=== PATIENT | male | born 1930 | race Caucasian/White ===

== ENCOUNTER 2017-04-08 07:09 | Inpatient (IN) ==
[2017-04-08] MEDS ORDERED: predniSONE 20 MG TABLET PO ONE (07:11)
[2017-04-08] MEDS ORDERED: Furosemide 40 MG/4 ML VIAL IVP ONE (07:11)
[2017-04-08] MEDS ORDERED: Ipratropium/Albuterol Neb 3 ML IH ONE (07:13)
[2017-04-08 07:40] LABS: Basophils % 0.4 %; Eosinophils % 0.3 %; Hematocrit 30.7 % (37.5-50.1); Hemoglobin 9.9 g/dL (12.9-16.9); Immature Granulocytes % 0.4 % (0-4); Immature Platelets 3.6 % (1.1-6.1); Lymphocytes # 0.8 K/mcL (0.6-4.6); Lymphocytes % 11.4 %; Mean Corpuscular HGB Conc 32.2 g/dL (31.6-35.5); Mean Corpuscular Hemoglobin 28.9 pg (28.0-33.3); Mean Corpuscular Volume 89.5 fL (83.0-100.0); Mean Platelet Volume 11.3 fL (9.4-12.4); Monocytes # 0.6 K/mcL (0.0-1.3); Monocytes % 8.7 %; Neutrophils # 5.4 K/mcL (1.6-8.9); Red Blood Count 3.43 M/mcL (4.19-5.50); Red Cell Distribution Width 14.5 % (11.5-14.5); Segmented Neutrophils % 78.8 %
[2017-04-08 07:50] LABS: Calcium 9.4 mg/dL (8.6-10.8); Potassium 4.6 mEq/L (3.5-4.5)
[2017-04-08 07:55] LABS: Platelet Count 81 K/mcL (140-400)
[2017-04-08 08:05] LABS: Bilirubin,Urine Negative (Negative); Blood,Urine Negative (Negative); Clarity,Urine Clear (Clear); Color,Urine Yellow (Yellow); Glucose,Urine (UA) 250 mg/dL (Normal); Ketones,Urine Negative (Negative); Leukocyte Esterase,Urine Negative (Negative); Nitrite,Urine Negative (Negative); Protein,Urine 100 mg/dL (Neg-Trace); Specific Gravity,Urine 1.019 (1.010-1.025); Urobilinogen,Urine Normal (Normal)
[2017-04-08 08:08] LABS: Bacteria,Urine None Seen per hpf (None-Few); Hyaline Casts,Urine None Seen per lpf (None-Few); RBC,Urine 0-3 per hpf (0-3); Squamous Epithelial Cell,Urine Many per lpf (None-Few); WBC,Urine 0-3 per hpf (0-3)
[2017-04-08] MEDS ORDERED: Levofloxacin 750 MG/150 ML 750 MG/150 ML BAG IVPB ONE (08:23)
--- NOTE | 2017-04-08 09:06 | Emergency Department Note ---
Disposition Clinical Impression: Hypoxia Congestive heart failure Qualifiers: Congestive heart failure type: unspecified congestive heart failure type Congestive heart failure chronicity: acute on chronic Qualified Code(s): I50.9 - Heart failure, unspecified Fluid overload Qualifiers: Hypervolemia type: unspecified Qualified Code(s): E87.70 - Fluid overload, unspecified Disposition: Admitted As Inpatient Condition: Good Forms: ED Satisfaction Letter Time of Disposition: 09:27 SOB HPI - General Chief Complaint: ED Shortness of Breath/Dyspnea Stated Complaint: YOHANNES Time Seen by Provider: 04/08/17 07:11 Source: patient Mode of arrival: ambulatory Limitations: no limitations Nursing Notes Reviewed: Yes Vital Signs Reviewed: Yes - History of Present Illness Patient presents from the [facility] for shortness of breath. He says that he said this happened in the past. He has a history of congestive heart failure and cardiac issues but denies any chest pain this time. Onset of the symptoms slowly last several days. Denies chest pain fevers chills nausea vomiting diarrhea. Denies headache or vision changes. His main complaint is shortness of breath and exertional dyspnea. No recent trauma or injuries no other medical issues at this time Pt Subjective Complaint: cough Onset (ago): day(s) Severity: moderate Consistency/Duration: constant Improves with: oxygen, rest, bronchodilators, upright position Worsens with: lying flat, exertion Known history of: congestive heart failure Associated symptoms: Reports: cough, orthopnea. Denies: sputum production, lower extremity pain Treatment prior to arrival: oxygen Cough present: No Sputum production: No - Related Data Home oxygen amount: 4 liters Allergies Allergy/AdvReac Type Severity Reaction Status Date / Time No Known Allergies Allergy Verified 04/08/17 07:42 All systems ED: reviewed and negative except as stated. Review of Systems: As Per HPI Constitutional: Denies: fever, chills, weakness Cardiovascular: Reports: dyspnea on exertion, orthopnea, edema. Denies: chest pain, palpitations Respiratory: Denies: cough, dyspnea, wheezes Gastrointestinal: Denies: abdominal pain, nausea, vomiting, diarrhea Genitourinary: Denies: dysuria, frequency Musculoskeletal: Denies: back pain, neck pain Neurological: Denies: headache Past Medical History - Past Medical History Attestation: Yes The following information was validated with the patient. Source: patient Medical history: Reports: CHF, diabetes, myocardial infarction, renal disease Psychiatric history: Reports: no psych history - Social History Smoking Status: Never smoker Smokeless Tobacco Status: No Alcohol use: Reports: none Drug use: Reports: none Physical Exam - General Limitations: no limitations General appearance: alert, in no apparent distress - Head Head exam: atraumatic, normocephalic, normal inspection - Eye Eye exam: Present: normal appearance, PERRL, EOMI - Neck Neck exam: Present: normal inspection, full ROM, trachea midline - Chest Chest inspection: Present: normal inspection, symmetric chest wall rise - Respiratory Respiratory exam: Present: normal lung sounds bilaterally - Cardiovascular Cardiovascular exam: Present: regular rate, normal rhythm, normal heart sounds - Abdominal Exam Abdominal exam: Present: soft, Non-Tender, normal bowel sounds. Absent: tenderness, distention, guarding, rebound, rigidity, diminished bowel sounds - Extremities Exam Extremities exam: Present: normal inspection, full ROM, normal capillary refill , pedal edema. Absent: tenderness - Back Exam Back exam: Present: normal inspection, full ROM. Absent: tenderness, CVA tenderness (R), CVA tenderness (L) - Neurological Exam Neurological exam: Present: alert, oriented X3, CN II-XII intact, normal gait - Skin Skin exam: Present: warm, dry, intact, normal color Course Course Narrative: patient seen and examined the time oeen her shortness of breath. The clinic w emergency room for e patient denies any chest pain. Denies any fevers or chills nausea vomiting or diarrhea. Denies any recent medication changes or trauma this time. Patient presentation is alert and oriented and speaking in full sentences without does have visible dyspnea and increased work of breathing. On 4 L of oxygen and does not use oxygen at home. Patient's lungs are coarse and wet on presentation. Does have pitting edema in the lower extremities. He is sitting upright and leaning forward. He has no stridor no trismus. His mucous membranes are moist. Cardiac evaluation sows no murmurs and regular rhythm. EKG chest x-ray labs including BNP and troponin will be ordered at this time. Single dose of IV Lasix to be ordered. Patient will most likely need admission for what appears to be shortness of breath, fluid overload, increased work of breathing at this time. Patient I discussed this at length in presentation is comfortable this plan. Patient will be given aspirin precaution early including evaluation for possible cardiac source. Patient is otherwise stable resting comfortably in the bed. - Reevaluation(s) Reevaluation #1: Patient found a significantly elevated BNP, stable renal insufficiency, low hemoglobin of 9.91 g drop compared to one lab drawn from almost 8 months ago. He denies any dark-colored stools and greater than 4 months. He deferred rectal examination at this time. Vital signs otherwise stable while here. IV Lasix given with a creatinine 2.29 which appears to be around his baseline. Patient will need admission for definitive management. He still requiring 4 L of oxygen here in the emergency room. Otherwise his heart rate and his respirations are stabilized after breathing treatments and steroids. Patient is comfortable in the bed at this point family and the patient both agree with the course of care plan. Hospital space at this time for admission Time: 09:18 Reevaluation #2: Dr. stallings and I reviewed the patient's presentation symptoms of medical history. Happy to accept the patient has a hospital for definitive management of what appears to be fluid overload CHF and hypoxia. Patient is much better after his treatments as well as evaluation in the emergency room. No other clinical concerns noted during this evaluation. Time: 09:27 Vital Signs Temperature 99.5 F 04/08/17 07:11 Pulse Rate 88 04/08/17 07:11 Respiratory Rate 18 04/08/17 07:11 Blood Pressure 168/75 04/08/17 07:11 O2 Sat by Pulse Oximetry 91 04/08/17 07:11 Temperature 99.5 F 04/08/17 07:11 Pulse Rate 88 04/08/17 07:11 Respiratory Rate 18 04/08/17 07:11 Blood Pressure 168/75 04/08/17 07:11 O2 Sat by Pulse Oximetry 94 04/08/17 07:11 Oxygen Delivery Oxygen Delivery Nasal Cannula Shortness of Breath/Dyspnea - MDM Narrative Medical decision making narrative: Shortness of breath, congestive heart failure, elevated troponin, increased work of breathing - Medical Records Medical records reviewed: Yes I reviewed the patient's medical records. - Lab Data Lab results reviewed: Yes I reviewed the patient's lab results. Result diagrams: 04/08/17 07:31 04/08/17 07:31 Lab Results 04/08/17 04/08/17 04/08/17 Range/Units 07:31 07:31 07:31 WBC 6.9 (4.3-11.1) K/mcL RBC 3.43 L (4.19-5.50) M/mcL Hgb 9.9 L (12.9-16.9) g/dL Hct 30.7 L (37.5-50.1) % MCV 89.5 (83.0-100.0) fL MCH 28.9 (28.0-33.3) pg MCHC 32.2 (31.6-35.5) g/dL RDW 14.5 (11.5-14.5) % Plt Count 81 L (140-400) K/mcL MPV 11.3 (9.4-12.4) fL Immature Gran % 0.4 (0-4) % Seg Neutrophils % 78.8 % Lymphocytes % 11.4 % Monocytes % 8.7 % Eosinophils % 0.3 % Basophils % 0.4 % Neutrophils # 5.4 (1.6-8.9) K/mcL Lymphocytes # 0.8 (0.6-4.6) K/mcL Monocytes # 0.6 (0.0-1.3) K/mcL Eosinophils # 0.0 (0.0-0.6) K/mcL Basophils # 0.0 (0.0-0.2) K/mcL Immature Plt Fraction 3.6 (1.1-6.1) % Sodium 138 (136-145) mEq/L Potassium 4.6 H (3.5-4.5) mEq/L Chloride 109 (98-109) mEq/L Carbon Dioxide 20 (19-29) mEq/L BUN 40 H (8-26) mg/dL Creatinine 2.29 H (0.72-1.25) mg/dL Est GFR ( Amer) 33 L (> 60) Est GFR (Non-Af Amer) 27 L (> 60) BUN/Creatinine Ratio 17 (6-26) Glucose 273 H (70-99) mg/dL Calculated Osmolality 305 H (280-300) Lactic Acid 1.6 (0.5-2.2) mmol/L Calcium 9.4 (8.6-10.8) mg/dL Troponin I (0-0.03) ng/mL B-Natriuretic Peptide (0-100) pg/mL Urine Color (Yellow) Urine Clarity (Clear) Urine pH (5.0-8.0) pH Units Ur Specific [place] (1.010-1.025) Urine Protein (Neg-Trace) mg/dL Urine Glucose (UA) (Normal) mg/dL Urine Ketones (Negative) mg/dL Urine Blood (Negative) Urine Nitrite (Negative) Urine Bilirubin (Negative) Urine Urobilinogen (Normal) mg/dL Ur Leukocyte Esterase (Negative) Urine Microscopic RBC (0-3) per hpf Urine Microscopic WBC (0-3) per hpf Ur Squamous Epith Cells (None-Few) per lpf Urine Bacteria (None-Few) per hpf Hyaline Casts (None-Few) per lpf Ur Culture Indicated? (NO) 04/08/17 04/08/17 04/08/17 Range/Units 07:31 07:31 07:58 WBC (4.3-11.1) K/mcL RBC (4.19-5.50) M/mcL Hgb (12.9-16.9) g/dL Hct (37.5-50.1) % MCV (83.0-100.0) fL MCH (28.0-33.3) pg MCHC (31.6-35.5) g/dL RDW (11.5-14.5) % Plt Count (140-400) K/mcL MPV (9.4-12.4) fL Immature Gran % (0-4) % Seg Neutrophils % % Lymphocytes % % Monocytes % % Eosinophils % % Basophils % % Neutrophils # (1.6-8.9) K/mcL Lymphocytes # (0.6-4.6) K/mcL Monocytes # (0.0-1.3) K/mcL Eosinophils # (0.0-0.6) K/mcL Basophils # (0.0-0.2) K/mcL Immature Plt Fraction (1.1-6.1) % Sodium (136-145) mEq/L Potassium (3.5-4.5) mEq/L Chloride (98-109) mEq/L Carbon Dioxide (19-29) mEq/L BUN (8-26) mg/dL Creatinine (0.72-1.25) mg/dL Est GFR ( Amer) (> 60) Est GFR (Non-Af Amer) (> 60) BUN/Creatinine Ratio (6-26) Glucose (70-99) mg/dL Calculated Osmolality (280-300) Lactic Acid (0.5-2.2) mmol/L Calcium (8.6-10.8) mg/dL Troponin I 0.06 H* (0-0.03) ng/mL B-Natriuretic Peptide 1194 H (0-100) pg/mL Urine Color Yellow (Yellow) Urine Clarity Clear (Clear) Urine pH 6.0 (5.0-8.0) pH Units Ur Specific [place] 1.019 (1.010-1.025) Urine Protein 100 H (Neg-Trace) mg/dL Urine Glucose (UA) 250 H (Normal) mg/dL Urine Ketones Negative (Negative) mg/dL Urine Blood Negative (Negative) Urine Nitrite Negative (Negative) Urine Bilirubin Negative (Negative) Urine Urobilinogen Normal (Normal) mg/dL Ur Leukocyte Esterase Negative (Negative) Urine Microscopic RBC 0-3 (0-3) per hpf Urine Microscopic WBC 0-3 (0-3) per hpf Ur Squamous Epith Cells Many H (None-Few) per lpf Urine Bacteria None Seen (None-Few) per hpf Hyaline Casts None Seen (None-Few) per lpf Ur Culture Indicated? NO (NO) - Radiology Data Radiology results reviewed: Yes I reviewed the patient's radiology results. Chest x-ray is concerning for left-sided pleural effusion or pneumonia - EKG Data EKG attestation: Yes I reviewed and interpreted this EKG. EKG shows normal: Reports: sinus rhythm, axis, intervals, QRS complexes, ST-T waves Rate: Reports: normal Rhythm: Reports: NSR [place]/QRS: Reports: normal When compared to previous EKG there are: no significant changes Interpretation: Reports: no acute changes, unchanged when compared to prior tracing (date) (08/05/14) Critical Care Time Critical Care Time: Yes Total Critical Care Time: 45 Attestation: Critical care performed: Time is exclusive of separately billable procedures. Time includes: direct patient care, patient reassessment, coordination of patient care, interpretation of data (laboratory data, radiology data, and respiratory data), review of patient's medical records, medical consultation and documentation of patient care. Procedures included in critical care time: Procedures excluded from critical care time:
[2017-04-08] MEDS ORDERED: Naloxone 0.4 MG/ML INJ IVP PRN (10:01)
[2017-04-08] MEDS ORDERED: *HR* Dextrose 50 % in Water (Syg) 50 ML SYRINGE IVP PRN (10:04)
[2017-04-08] MEDS ORDERED: D5% in Water 1,000 ML IVC PRN (10:04)
[2017-04-08] MEDS ORDERED: Dextrose Gel 15 GM PO PRN ×2 (10:04)
[2017-04-08] MEDS ORDERED: Ipratropium/Albuterol Neb 3 ML IH PRN (10:05)
--- NOTE | 2017-04-08 10:12 | Internal Med History&Physical ---
Date of Encounter: 04/08/17 Time of Encounter: 10:10 Assessment and Plan (1) Congestive heart failure Current visit: Yes Status: Acute IV Lasix, I&Os, low-salt diet, watch creatinine Qualifiers: Congestive heart failure type: unspecified congestive heart failure type Congestive heart failure chronicity: acute on chronic Qualified Code(s): I50.9 - Heart failure, unspecified (2) Acute bronchitis Current visit: Yes Status: Acute duonebs, doxycycline Qualifiers: Bronchitis organism: unspecified organism Qualified Code(s): J20.9 - Acute bronchitis, unspecified (3) CKD (chronic kidney disease) Current visit: Yes Status: Acute watch Cr with diuretics Qualifiers: Chronic kidney disease stage: stage 3 (moderate) Qualified Code(s): N18.3 - Chronic kidney disease, stage 3 (moderate) (4) HTN (hypertension), benign Current visit: Yes Status: Acute continue home med (5) Diabetes mellitus Current visit: Yes Status: Acute add ISS while inpatient. continue home meds Qualifiers: Qualified Code(s): E11.9 - Type 2 diabetes mellitus without complications; Z79.4 - moth exterminator (current) use of insulin; Z79.4 - assisted (current) use of insulin; Z79.4 - moth exterminator (current) use of insulin; Z79.4 - assisted (current ) use of insulin Internal Medicine - H&P: HPI Chief complaint: SOB History of present illness: Mr. Bragg is a 86 year old male with a history of CAD, CABG who presents with acute onset shortness of breath. He developed symptoms of shortness of breath since yesterday all day. Symptoms got worse overnight why he woke up at 12 midnight could not catch breath and was not able to go back to bed. Shortness of breath worse on exertion improved with rest and Lasix and steroids. At baseline he is on room air. In the ER he desaturated to the mid 80s without oxygen. On review he has CKD and is seen by Dr. Cobb of nephrology. His home Lasix and lisinopril were on hold because of renal issues per patient report EKG personally reviewed with rate of 89, normal sinus rate and EXAMINATION: SINGLE VIEW OF THE CHEST 04/08/2017 7:44 am COMPARISON: 08/05/2014 HISTORY: ORDERING SYSTEM PROVIDED HISTORY: dyspnea Additional tech notes: 10 resp@[id number] TB Shortness of breath with cough. Acute symptoms. Initial study. FINDINGS: There is a small left pleural effusion with overlying airspace disease. No pneumothorax. The heart is enlarged. Sternotomy wires are present. Past Med Surg Social Fam HX - Past Medical History Medical history: CHF, diabetes, myocardial infarction, renal disease Psychiatric history: no psych history - Social History Smoking Status: Never smoker Smokeless Tobacco Status: No Alcohol use: none Drug use: none Internal Medicine - H&P: Meds 3 Allergy/AdvReac Type Severity Reaction Status Date / Time No Known Allergies Allergy Verified 04/08/17 07:42 All Systems PM: A 10-system review of systems was performed and is negative for pertinent findings except as documented above in the HPI. Review of systems: ROS 14 point review of systems reviewed as best as possible given presentation. Pertinent positive or negative as per HPI or otherwise reviewed as negative - Constitutional Vitals: Temp Pulse Resp BP Pulse Ox 99.5 F 98 16 172/85 96 04/08/17 07:11 04/08/17 09:44 04/08/17 09:44 04/08/17 09:44 04/08/17 09:44 Exam: General - AAO x 3 Psych - Appropriate affect/speech. No agitation Eyes - JJ. Eye lids intact. No scleral icterus Neuro - No gross peripheral or central neuro deficits on inspection Heart - Sinus. RRR. S1 and S2 present. No added HS/murmurs appreciated. Lung - Adequate air entry b/l, bibasal crackles appreciated. GI - Soft, non-tender. No hepatosplenomegaly/ascites. BS+ - No CVA/suprapubic tenderness or palpable bladder distension Skin - Intact. No rash/petechiae/ecchymosis. Warm extremities. Trace lower extremity edema Internal Med - H&P Results - Labs CBC & Chem 7: 04/08/17 07:31 04/08/17 07:31
[2017-04-08] MEDS: Insulin LISPRO 300 UNITS/3 ML VIAL SQ SCH ×2 (12:27→17:21)
--- NOTE | 2017-04-08 13:21 | Electrocardiograph Report ---
[place] [id number] Test Date: 2017-04-08 Pat Name: Gil Bragg Department: 103 Room: 2A44 Gender: M [employer] Production Worker: RAMY : 1930 Requested By: Reed Davis Order Number: [id number] Reading MD: Rachid Cespedes Measurements Intervals [place] Rate: 89 P: 59 SD: 198 QRS: -2 QRSD: 106 T: 28 QT: 367 QTc: 414 Interpretive Statements SINUS RHYTHM POSSIBLE ANTERIOR MYOCARDIAL INFARCTION [30 ms Q WAVE IN V3/V4, OR R < 0.2 mV IN V4], OF INDETERMINATE AGE POSSIBLE INFERIOR MYOCARDIAL INFARCTION [30 ms Q WAVE IN II/aVF], OF INDETERMINATE AGE Electronically Signed On 04-08-2017 13:19:40 EDT by Rachid Cespedes
[2017-04-08] MEDS ORDERED: Furosemide 40 MG/4 ML VIAL IVP SCH (16:00)
[2017-04-08] MEDS: Ipratropium/Albuterol Neb 3 ML IH SCH ×2 (16:41→21:35)
[2017-04-08] MEDS: Furosemide 40 MG/4 ML VIAL IVP SCH (17:20)
[2017-04-08] MEDS: Doxycycline 100 MG CAPSULE PO SCH (17:21)
[2017-04-08] MEDS: *HR* Heparin 5,000 UNIT/ML VIAL SQ SCH (17:21)
[2017-04-08] MEDS ORDERED: Doxycycline 100 MG in 0.9 % Sodium Chloride Mini Bag 100 ML IVPB SCH (18:00)
[2017-04-08] MEDS ORDERED: Insulin LISPRO 300 UNITS/3 ML VIAL SQ SCH (21:00)
[2017-04-08] MEDS: Insulin DETEMIR 100 UNIT/ML X5UNITS SQ SCH (22:17)
[2017-04-09] MEDS: Ipratropium/Albuterol Neb 3 ML IH SCH ×4 (04:08→22:11)
[2017-04-09] MEDS: *HR* Heparin 5,000 UNIT/ML VIAL SQ SCH ×2 (05:58→17:39)
[2017-04-09] MEDS: Doxycycline 100 MG CAPSULE PO SCH ×2 (05:58→17:39)
[2017-04-09 06:26] LABS: Eosinophils % 0.2 %
[2017-04-09 06:28] LABS: Basophils % 0.2 %; Hematocrit 30.2 % (37.5-50.1); Immature Granulocytes % 0.6 % (0-4); Lymphocytes # 0.7 K/mcL (0.6-4.6); Mean Corpuscular HGB Conc 33.1 g/dL (31.6-35.5); Mean Corpuscular Hemoglobin 29.8 pg (28.0-33.3); Mean Corpuscular Volume 89.9 fL (83.0-100.0); Mean Platelet Volume 11.9 fL (9.4-12.4); Monocytes # 0.6 K/mcL (0.0-1.3); Monocytes % 9.3 %; Red Blood Count 3.36 M/mcL (4.19-5.50); Segmented Neutrophils % 78.7 %
[2017-04-09 06:35] LABS: Calcium 9.6 mg/dL (8.6-10.8); Magnesium 1.6 mg/dL (1.6-2.6); Platelet Count 88 K/mcL (140-400); Potassium 4.5 mEq/L (3.5-4.5)
[2017-04-09] MEDS: Insulin LISPRO 300 UNITS/3 ML VIAL SQ SCH ×4 (07:43→22:42)
[2017-04-09] MEDS: Furosemide 40 MG/4 ML VIAL IVP SCH ×2 (07:43→16:15)
[2017-04-09] MEDS ORDERED: *HR* GlipiZIDE 5 MG TABLET PO SCH (08:00)
--- NOTE | 2017-04-09 13:34 | Internal Med Progress Note ---
Date of Encounter: 04/09/17 Time of Encounter: 13:30 - Assessment and plan (1) Acute exacerbation of CHF (congestive heart failure) Current Visit: Yes Status: Acute Assessment and plan: Pt reported to be off Lasix and Lisinopril as per his primary book illustrator due to his renal function No echocardiogram available on file will obtain 2D echo pt reports of significant relief compared to previous day Will continue IV diuresis monitor I/Os, daily weights Fluid restriction, low salt diet Qualifiers: Congestive heart failure type: unspecified congestive heart failure type Qualified Code(s): I50.9 - Heart failure, unspecified (2) Acute bronchitis Current Visit: Yes Status: Acute Assessment and plan: Pt clinically improving will continue Doxycycline and bronchodilator support Preliminary blood culture report shows No growth, will follow up official report Qualifiers: Bronchitis organism: unspecified organism Qualified Code(s): J20.9 - Acute bronchitis, unspecified (3) CKD (chronic kidney disease) Current Visit: Yes Status: Chronic Assessment and plan: Renal function appears to be at baseline Will continue diuretic support will closely monitor renal function Qualifiers: Chronic kidney disease stage: stage 3 (moderate) Qualified Code(s): N18.3 - Chronic kidney disease, stage 3 (moderate) (4) HTN (hypertension), benign Current Visit: Yes Status: Chronic Assessment and plan: Noted to be mildly hypertensive Starting pt's home dose of Nifedipine will continue to closely monitor Pt clinically asymptomatic (5) Diabetes mellitus Current Visit: Yes Status: Acute Assessment and plan: Hold oral antihyperglycemic agents continue home basal insulin continue sliding scale insulin algorithm monitor FS and BG ADA diet Qualifiers: Diabetes mellitus type: type 2 Diabetes mellitus complication status: with unspecified complications Diabetes mellitus prison insulin use: with prison use Qualified Code(s): E11.8 - Type 2 diabetes mellitus with unspecified complications; Z79.4 - roasterman (current) use of insulin; Z79.4 - penitentiary ( current) use of insulin; Z79.4 - roasterman (current) use of insulin; Z79.4 - roasterman (current) use of insulin - Subjective Interval history: Patient seen and examined at bedside. Resting in chair and reports of feeling significantly better compared to previous day. Reports of not being on home oxygen and remains O2 dependent since hospitalization. Noted to have good urine output. No overnight issues reported. - Constitutional Vitals: Temp Pulse Resp BP Pulse Ox 97.7 F 72 16 158/79 96 04/09/17 11:12 04/09/17 11:12 04/09/17 11:12 04/09/17 11:12 04/09/17 11:12 General appearance: Present: cooperative, A&O X 3, pleasant, no acute distress, answers questions appropriately - Head Head exam: Present: atraumatic, normocephalic - Eye Eye exam: Present: conjuntiva pink, sclera anicteric - Respiratory Respiratory exam: Present: rales (bibasilar rales ). Absent: respiratory distress, wheezes - Cardiovascular Cardiovascular exam: Present: RRR, +S1, +S2. Absent: diastolic murmur, gallop, rubs, systolic murmur - GI/Abdominal GI/Abdominal exam: Present: normal bowel sounds, soft, no peritoneal signs. Absent: distended, tenderness - Extremities Exam Extremities exam: Present: pedal edema, warm, radial pulses palpable and symmetrical. Absent: calf tenderness - Neurological Exam Neurological exam: Present: alert, oriented X3 - Psychiatric Psychiatric exam: Present: normal affect, normal mood Internal Medicine: Result - Labs CBC & Chem 7: 04/09/17 06:03 04/09/17 06:03 Labs: Short CBC 04/09/17 Range/Units 06:03 WBC 6.3 (4.3-11.1) K/mcL Hgb 10.0 L (12.9-16.9) g/dL Hct 30.2 L (37.5-50.1) % Plt Count 88 L (140-400) K/mcL Neutrophils # 5.0 (1.6-8.9) K/mcL BMP 04/09/17 06:03 Sodium 141 Potassium 4.5 Chloride 109 Carbon Dioxide 24 BUN 48 H Creatinine 2.14 H Glucose 137 H Calcium 9.6 Cardiac Enzymes 04/08/17 04/08/17 Range/Units 15:50 21:47 Troponin I 0.08 H* 0.09 H* (0-0.03) ng/mL Consult Discharge Plan - Plan [facility]Primary Care Provider[facility] - 04/16/17 2:30 pm (please follow up as schedule...)
[2017-04-09] MEDS ORDERED: Melatonin 3 MG TABLET PO PRN (13:45)
[2017-04-09] MEDS: NIFEdipine XL (24 HR) 60 MG TAB.ER.24 PO SCH (14:39)
[2017-04-09] MEDS: Aspirin Enteric Coated 81 MG Tablet PO SCH (14:39)
[2017-04-09] MEDS: Insulin DETEMIR 100 UNIT/ML X5UNITS SQ SCH (22:42)
[2017-04-10] MEDS: Ipratropium/Albuterol Neb 3 ML IH SCH ×4 (03:32→21:46)
[2017-04-10 04:48] LABS: Basophils % 0.4 %; Eosinophils # 0.2 K/mcL (0.0-0.6); Eosinophils % 2.8 %; Hematocrit 32.9 % (37.5-50.1); Hemoglobin 10.7 g/dL (12.9-16.9); Immature Granulocytes % 0.6 % (0-4); Lymphocytes # 1.6 K/mcL (0.6-4.6); Lymphocytes % 24.1 %; Mean Corpuscular HGB Conc 32.5 g/dL (31.6-35.5); Mean Corpuscular Hemoglobin 29.6 pg (28.0-33.3); Mean Corpuscular Volume 90.9 fL (83.0-100.0); Mean Platelet Volume 11.3 fL (9.4-12.4); Monocytes # 0.6 K/mcL (0.0-1.3); Monocytes % 9.6 %; Neutrophils # 4.2 K/mcL (1.6-8.9); Platelet Count 104 K/mcL (140-400); Red Blood Count 3.62 M/mcL (4.19-5.50); Red Cell Distribution Width 14.1 % (11.5-14.5); Segmented Neutrophils % 62.5 %
[2017-04-10 05:05] LABS: Calcium 9.5 mg/dL (8.6-10.8); Magnesium 1.5 mg/dL (1.6-2.6); Potassium 3.9 mEq/L (3.5-4.5)
[2017-04-10] MEDS: Doxycycline 100 MG CAPSULE PO SCH ×2 (06:10→17:20)
[2017-04-10] MEDS: *HR* Heparin 5,000 UNIT/ML VIAL SQ SCH ×2 (06:10→17:20)
[2017-04-10] MEDS ORDERED: Magnesium Sulfate 1 GM in D5% in Water 100 ML IVPB ONE (07:39)
[2017-04-10] MEDS: Insulin LISPRO 300 UNITS/3 ML VIAL SQ SCH ×4 (07:41→21:48)
[2017-04-10] MEDS: NIFEdipine XL (24 HR) 60 MG TAB.ER.24 PO SCH (09:35)
[2017-04-10] MEDS: Furosemide 40 MG/4 ML VIAL IVP SCH ×2 (09:35→17:20)
[2017-04-10] MEDS: Aspirin Enteric Coated 81 MG Tablet PO SCH (09:35)
--- NOTE | 2017-04-10 14:23 | Discharge Summary ---
Date of Encounter: 04/10/17 Time of Encounter: 14:08 - Discharge Diagnosis (1) Acute exacerbation of CHF (congestive heart failure) Priority: Primary Status: Acute Qualifiers: Congestive heart failure type: unspecified congestive heart failure type Qualified Code(s): I50.9 - Heart failure, unspecified (2) Acute bronchitis Priority: Secondary Status: Acute Qualifiers: Bronchitis organism: unspecified organism Qualified Code(s): J20.9 - Acute bronchitis, unspecified (3) CKD (chronic kidney disease) Priority: Secondary Status: Chronic Qualifiers: Chronic kidney disease stage: stage 3 (moderate) Qualified Code(s): N18.3 - Chronic kidney disease, stage 3 (moderate) (4) HTN (hypertension), benign Priority: Secondary Status: Chronic (5) Diabetes mellitus Priority: Secondary Status: Acute Qualifiers: Diabetes mellitus type: type 2 Diabetes mellitus complication status: with unspecified complications Diabetes mellitus care home insulin use: with ad terminal makeup operator use Qualified Code(s): E11.8 - Type 2 diabetes mellitus with unspecified complications; Z79.4 - oysterman (current) use of insulin; Z79.4 - oysterman ( current) use of insulin; Z79.4 - skilled nursing (current) use of insulin; Z79.4 - skilled nursing (current) use of insulin - Discharge Medications Prescriptions: RX: Doxycycline 100 mg PO Q12HR #5 capsule RX: Furosemide [Lasix] 20 mg PO BID #30 tablet Home Medications: Allopurinol [Zyloprim 100 MG] 100 mg PO DAILY 04/08/17 [History] Aspirin [Lo-Dose Aspirin EC] 81 mg PO DAILY 04/08/17 [History] Atenolol [Tenormin] 25 mg PO BID 04/08/17 [History] Ferrous Gluconate 324 mg PO DAILY 04/08/17 [History] Insulin Glargine,Hum.rec.anlog [Lantus Solostar] 15 unit SQ DAILY 04/08/17 [ History] Melatonin [Melatin] 3 mg PO HS 04/08/17 [History] Multivit-Min/FA/Lycopen/Lutein [A Thru Z Select Multivit Tab] 1 tab PO DAILY 03/17 [History] NIFEdipine [Nifedipine ER] 60 mg PO DAILY 04/08/17 [History] [place]-3/Dha/Epa/Fish Oil [Fish Oil 1,000 mg Softgel] 3 cap PO DAILY 04/08/17 [ History] Simvastatin [Zocor] 20 mg PO HS 04/08/17 [History] Terazosin HCl 4 mg PO HS 04/08/17 [History] glipiZIDE [Glipizide] 5 mg PO QPM 04/08/17 [History] glipiZIDE [Glipizide] 10 mg PO QAM 04/08/17 [History] Doxycycline 100 mg PO Q12HR #5 capsule 04/10/17 [Rx] Furosemide [Lasix] 20 mg PO BID #30 tablet 04/10/17 [Rx] Allergies/Adverse Reactions: 3 Allergy/AdvReac Type Severity Reaction Status Date / Time No Known Allergies Allergy Verified 04/08/17 07:42 Procedures/tests Complete & Pending: Procedures Performed prior 72 hours Category Date Time Status EV echocardiogram Stat Y 04/09/17 13:32 Completed Date of admission: 04/08/17 10:01 Primary care physician: PCP KERRY Discharging clinician: Sara Ortiz Anticipated date of discharge: 04/10/17 - Patient Status Disposition: Home, Self-Care Condition: Good Functional capacity at discharge: independent ambulation Overall status at discharge: patient is back to baseline - Discharge Instructions Follow Up With: KERRY,PCP [Primary Care Provider] - 04/16/17 2:30 pm (please follow up as schedule...) Additional Instructions: Please follow up with your primary care physician within five days after your discharge from the hospital. Please follow up with your metal baler and supervisor home economics within one week after your discharge from the hospital. Your home dose of lasix has been increased to 20mg twice a day. Please continue oral antibiotics as prescribed Please continue all your other home medications as prescribed by your primary care physician. Please seek medical help if you are noted to have gained 5 pounds or have difficulty breathing. - Diet and Activity Activity: wear oxygen at all times, wear oxygen at night Diet: low salt diet Hospital course: Mr. Bragg is a 86 year old male with PMH of CAD, CABG, CHF, CKD who was admitted for acute respiratory distress secondary to CHF decompensation and acute bronchitis. He reported of not taking his lasix as per his supervisor home economics's recommendation due to his renal function. He was found to be in volume overload and responded well to diuretic therapy. He remained O2 dependent and qualified for home oxygen therapy. He is currently hemodynamically stable and will be discharged to home with follow up with PCP, cardiology, and nephrology. - Time Spent with Patient Total time spent providing and/or coordinating discharge services: Greater than 30 minutes - Constitutional Vitals: Temp Pulse Resp BP Pulse Ox 97.4 F L 70 17 143/57 96 04/10/17 10:58 04/10/17 10:58 04/10/17 11:30 04/10/17 10:58 04/10/17 11:30 General appearance: Present: cooperative, A&O X 3, pleasant, no acute distress, answers questions appropriately - Head Head exam: Present: atraumatic, normocephalic - Eye Eye exam: Present: conjuntiva pink, sclera anicteric - Respiratory Respiratory exam: Present: CTAB. Absent: accessory muscle use, rales, rhonchi, wheezes - Cardiovascular Cardiovascular exam: Present: RRR, +S1, +S2 - GI/Abdominal GI/Abdominal exam: Present: normal bowel sounds, soft, no peritoneal signs. Absent: distended, tenderness - Extremities Exam Extremities exam: Present: warm, radial pulses palpable and symmetrical. Absent : calf tenderness, tenderness - Neurological Exam Neurological exam: Present: alert, oriented X3
[2017-04-10] MEDS ORDERED: FLUARIX QUAD 2017-18 36MOS UP/PF 0.5 ML SYRINGE IM ONE (15:39)
[2017-04-10] MEDS: Insulin DETEMIR 100 UNIT/ML X5UNITS SQ SCH (21:53)
[2017-04-11] MEDS: Ipratropium/Albuterol Neb 3 ML IH SCH ×3 (04:05→15:47)
[2017-04-11] MEDS: *HR* Heparin 5,000 UNIT/ML VIAL SQ SCH (05:37)
[2017-04-11] MEDS: Doxycycline 100 MG CAPSULE PO SCH (05:37)
[2017-04-11 06:03] LABS: Basophils % 0.6 %; Eosinophils # 0.3 K/mcL (0.0-0.6); Eosinophils % 4.7 %; Hematocrit 31.5 % (37.5-50.1); Hemoglobin 10.5 g/dL (12.9-16.9); Immature Granulocytes % 0.3 % (0-4); Lymphocytes # 1.5 K/mcL (0.6-4.6); Lymphocytes % 21.6 %; Mean Corpuscular HGB Conc 33.3 g/dL (31.6-35.5); Mean Corpuscular Hemoglobin 29.6 pg (28.0-33.3); Mean Corpuscular Volume 88.7 fL (83.0-100.0); Mean Platelet Volume 11.4 fL (9.4-12.4); Monocytes # 0.6 K/mcL (0.0-1.3); Neutrophils # 4.3 K/mcL (1.6-8.9); Platelet Count 105 K/mcL (140-400); Red Blood Count 3.55 M/mcL (4.19-5.50); Red Cell Distribution Width 14.1 % (11.5-14.5); Segmented Neutrophils % 63.8 %
[2017-04-11 06:18] LABS: Calcium 9.4 mg/dL (8.6-10.8); Magnesium 1.7 mg/dL (1.6-2.6); Potassium 4.1 mEq/L (3.5-4.5)
[2017-04-11] MEDS: Insulin LISPRO 300 UNITS/3 ML VIAL SQ SCH ×2 (07:14→11:56)
[2017-04-11] MEDS: Aspirin Enteric Coated 81 MG Tablet PO SCH (07:46)
[2017-04-11] MEDS: NIFEdipine XL (24 HR) 60 MG TAB.ER.24 PO SCH (07:46)
[2017-04-11] MEDS: Furosemide 40 MG/4 ML VIAL IVP SCH (07:46)
[2017-04-11 10:58] VITALS: BP 143/65
--- NOTE | 2017-04-11 11:53 | Internal Med Progress Note ---
Date of Encounter: 04/11/17 Time of Encounter: 11:51 - Assessment and plan (1) Acute exacerbation of CHF (congestive heart failure) Current Visit: Yes Status: Acute Qualifiers: Congestive heart failure type: unspecified congestive heart failure type Qualified Code(s): I50.9 - Heart failure, unspecified (2) Acute bronchitis Current Visit: Yes Status: Acute Qualifiers: Bronchitis organism: unspecified organism Qualified Code(s): J20.9 - Acute bronchitis, unspecified (3) CKD (chronic kidney disease) Current Visit: Yes Status: Chronic Qualifiers: Chronic kidney disease stage: stage 3 (moderate) Qualified Code(s): N18.3 - Chronic kidney disease, stage 3 (moderate) (4) HTN (hypertension), benign Current Visit: Yes Status: Chronic (5) Diabetes mellitus Current Visit: Yes Status: Acute Qualifiers: Diabetes mellitus type: type 2 Diabetes mellitus complication status: with unspecified complications Diabetes mellitus nursing home insulin use: with nursing home use Qualified Code(s): E11.8 - Type 2 diabetes mellitus with unspecified complications; Z79.4 - terminal system operator (current) use of insulin; Z79.4 - FDC ( current) use of insulin; Z79.4 - terminal system operator (current) use of insulin; Z79.4 - FDC (current) use of insulin - Subjective Interval history: Patient seen and examined at bedside. Resting in chair and reports of feeling well at this time. Saturating well on nasal cannula. Pt was admitted for acute respiratory distress secondary to CHF decompensation Pt was discharged to home yesterday however discharge was held as patient's home oxygen was not set up Pt is stable for discharge discharge pending arrangement of home oxygen. - Constitutional Vitals: Temp Pulse Resp BP Pulse Ox 97.8 F 69 16 143/65 97 04/11/17 10:56 04/11/17 10:56 04/11/17 10:56 04/11/17 10:56 04/11/17 10:56 General appearance: Present: cooperative, A&O X 3, pleasant, no acute distress, answers questions appropriately - Head Head exam: Present: atraumatic, normocephalic - Eye Eye exam: Present: conjuntiva pink, sclera anicteric - Respiratory Respiratory exam: Absent: respiratory distress, wheezes - Cardiovascular Cardiovascular exam: Present: RRR, +S1, +S2. Absent: diastolic murmur, gallop, rubs, systolic murmur - GI/Abdominal GI/Abdominal exam: Present: normal bowel sounds, soft, no peritoneal signs. Absent: distended, tenderness - Extremities Exam Extremities exam: Present: warm, radial pulses palpable and symmetrical. Absent : calf tenderness, cyanotic, pedal edema - Neurological Exam Neurological exam: Present: alert, oriented X3 - Psychiatric Psychiatric exam: Present: normal affect, normal mood Internal Medicine: Result - Labs CBC & Chem 7: 04/11/17 05:29 04/11/17 05:29 Labs: Short CBC 04/11/17 Range/Units 05:29 WBC 6.8 (4.3-11.1) K/mcL Hgb 10.5 L (12.9-16.9) g/dL Hct 31.5 L (37.5-50.1) % Plt Count 105 L (140-400) K/mcL Neutrophils # 4.3 (1.6-8.9) K/mcL BMP 04/11/17 05:29 Sodium 137 Potassium 4.1 Chloride 104 Carbon Dioxide 23 BUN 75 H Creatinine 2.55 H Glucose 121 H Calcium 9.4 Consult Discharge Plan - Plan Instructions: Furosemide (By mouth), Doxycycline (By mouth), Heart Failure (DC) Additional Instructions: Please follow up with your primary care physician within five days after your discharge from the hospital. Please follow up with your hide dyer and desktop support specialist within one week after your discharge from the hospital. Your home dose of lasix has been increased to 20mg twice a day. Please continue oral antibiotics as prescribed Please continue all your other home medications as prescribed by your primary care physician. Please seek medical help if you are noted to have gained 5 pounds or have difficulty breathing. Referrals: Marcelino Cobb DO [Partnered Physician] - 05/02/17 1:40 pm (Please follow up as schedule...) KERRY,PCP [Primary Care Provider] - 04/16/17 2:30 pm (please follow up as schedule...) Prescriptions: Doxycycline 100 mg PO Q12HR #5 capsule Furosemide [Lasix] 20 mg PO BID #30 tablet
== END 2017-04-11 16:29 | disposition home or self-care (01) | DRG 293 ==
LOC: EMEROO 07:09 → 2ANU 07:09 → SUATTDRO 10:01 → 2ANU 10:04
PROVIDERS: ADMIT Internal Medicine Hematology & Oncology; ATTEND Internal Medicine

== ENCOUNTER 2017-07-13 15:53 | Inpatient (IN) ==
[2017-07-13] MEDS ORDERED: Naloxone 0.4 MG/ML INJ IVP PRN (18:39)
[2017-07-13] MEDS ORDERED: 0.9 % Sodium Chloride 1,000 ML IVC SCH (18:45)
[2017-07-13] MEDS ORDERED: D5% in Water 1,000 ML IVC PRN (18:56)
[2017-07-13] MEDS ORDERED: Dextrose Gel 15 GM/37.5 ML TUBE PO PRN ×2 (18:56)
[2017-07-13] MEDS ORDERED: *HR* Dextrose 50 % in Water (Syg) 50 ML SYRINGE IVP PRN (18:56)
--- NOTE | 2017-07-13 19:42 | Internal Med History&Physical ---
<Aparna Jordan S - Last Filed: 07/13/17 19:40> Date of Encounter: 07/13/17 Time of Encounter: 19:40 Assessment and Plan (1) Community acquired pneumonia Current visit: Yes Status: Acute patient had emesis on evening, this may be aspiration nohemysyalden hodges trend white count and fever curve Qualifiers: Laterality: right Lung location: unspecified part of lung Qualified Code( s): J18.9 - Pneumonia, unspecified organism (2) Severe sepsis Current visit: Yes Status: Acute IVFluids Recheck lactic acid trend vital signs irish moss gatherer trend liver function tests (3) CKD (chronic kidney disease) Current visit: Yes Status: Chronic patient at baseline, follow labs avoid nephro toxic agents Gentle hydration with IV Fluids Qualifiers: Chronic kidney disease stage: stage 3 (moderate) Qualified Code(s): N18.3 - Chronic kidney disease, stage 3 (moderate) (4) HTN (hypertension), benign Current visit: No Status: Chronic monitor blood pressure review home meds in am Hydralizine as needed for elevated BP (5) Diabetes mellitus Current visit: Yes Status: Acute diabetic diet low dose sliding scale insulin AC/HS until oral intake improves, then reorder basal insulin Qualifiers: Diabetes mellitus type: type 2 Diabetes mellitus complication status: with unspecified complications Diabetes mellitus termite treater insulin use: with termite treater use Qualified Code(s): E11.8 - Type 2 diabetes mellitus with unspecified complications; Z79.4 - long-term (current) use of insulin; Z79.4 - intermediate teacher ( current) use of insulin; Z79.4 - intermediate teacher (current) use of insulin; Z79.4 - long-term (current) use of insulin (6) Elevated lactic acid level Current visit: Yes Status: Acute recheck lactic acid (7) Hypoxemia requiring supplemental oxygen Current visit: Yes Status: Acute titrate 02 as needed to maintain sats abgs as ordered bipap as ordered (8) Congestive heart failure Current visit: Yes Status: Chronic Not volume overloaded at this time enrolled in CHF clinic at [place] continue daily weight, intake and output evaluate meds in am check BNP Qualifiers: Congestive heart failure type: unspecified Congestive heart failure chronicity: acute on chronic Qualified Code(s): I50.9 - Heart failure, unspecified (9) Elevated liver function tests Current visit: Yes Status: Acute trend labs us of abdomen, limited Internal Medicine - H&P: HPI Chief complaint: SOB Admitted From: Hospital to Hospital Transfer ([facility]) Plans for Post Hospital Care: Home History of present illness: Mr. Bragg is a 87 year old male . His usual state of health until evening when he felt that he could not get his breath and he was placed on his when necessary oxygen by his daughter and then he was doing fairly well. On Saturday he would not eat and was coughing and had emesis. Saturday evening he told his son that he felt he was going just the CHF type symptoms. On Saturday morning the daughter was called by her mother who told her that the patient was coughing and had increased wheezing. The daughter instructed her mother to call EMS and he was taken to [facility]. From there he was transferred to this facility. They stated he just has been complaining of shortness of breath and had an increased cough. They said that when EMS came he was struggling to breathe and had a decreased O2 sat. He was given a respiratory treatment in the ambulance per the daughter's report. He has a history significant for diabetes mellitus type 2 insulin-dependent, chronic kidney disease with BUN and creatinine near his baseline on admission, CHF, hypertension and when necessary oxygen use. At [facility] he was found to have elevated bilirubin and a troponin of 0.11. Chest x-ray had showed a right lung infiltrate and a small left pleural effusion similar to prior exams. When he arrived at his facility he was short of breath and was placed on CPAP after gases were obtained. He is currently lying on the bed on [address] with his and daughter at the bedside. He is very comfortable at this time, all questions were answered and discussed plan of care. Past Med Surg Social Fam HX - Past Medical History Source: patient, old records reviewed, obtained from family Medical history: CHF, COPD, coronary artery disease, diabetes, myocardial infarction, renal disease Psychiatric history: no psych history - Past Surgical History Surgical History: coronary bypass (CABG) - Social History Smoking Status: Never smoker Smokeless Tobacco Status: No Alcohol use: none Drug use: none Occupational status: retired Current living situation: Home, With Family Activity Level: Independent ambulation (Noncontributory to this admission) Internal Medicine - H&P: Meds Allopurinol [Zyloprim 100 MG] 100 mg PO DAILY 07/13/17 [History] Aspirin [Lo-Dose Aspirin EC] 81 mg PO DAILY 07/13/17 [History] Atenolol [Tenormin] 25 mg PO BID 07/13/17 [History] Fish Oil 2 DAILY 07/13/17 [History] Furosemide [Lasix] 40 mg PO DAILY 07/13/17 [History] GlipiZIDE [Glipizide ER] 10 mg PO QAM 07/13/17 [History] Insulin Glargine,Hum.rec.anlog [Lantus Solostar] 15 unit SQ DAILY 07/13/17 [ History] Lisinopril [Zestril] 20 mg PO DAILY 07/13/17 [History] Magnesium Oxide [Mgo] 400 mg PO DAILY 07/13/17 [History] Simvastatin [Zocor] 20 mg PO HS 07/13/17 [History] Terazosin HCl 4 mg PO HS 07/13/17 [History] 3 Allergy/AdvReac Type Severity Reaction Status Date / Time No Known Allergies Allergy Verified 04/08/17 07:42 All Systems PM: A 10-system review of systems was performed and is negative for pertinent findings except as documented above in the HPI. - Constitutional Constitutional: as per HPI, no chills, no fever(s), no night sweats - EENT Eyes: no change in vision, no discharge, no pain, no photophobia Ears: no ear discharge, no ear pain, no tinnitus Nose, mouth and throat: no dysphagia, no nasal discharge, no neck pain, no sore throat - Cardiovascular Cardiovascular ROS IM: dyspnea, no chest pain, no diaphoresis, no lightheadedness, no palpitations, no syncope - Respiratory Respiratory: cough, dyspnea, dyspnea on exertion, wheezing, chest congestion, no excessive phlegm production - Gastrointestinal Gastrointestinal: no abdominal pain, no diarrhea, no hematemesis, no hematochezia, no melena, no nausea, no vomiting - Musculoskeletal Musculoskeletal ROS IM: no numbness, no tingling - Integumentary Integumentary IM: no rash, no unusual bruising - Neurological Neurological ROS: no confusion, no convulsions, no focal weakness, no numbness, no tingling, no tremor(s) - Hematologic/Lymphatic Hematologic/Lymphatic: no easy bruising - Constitutional Vitals: Resp Pulse Ox 23 82 07/13/17 18:03 07/13/17 18:03 General appearance: Present: A&O X 3, pleasant, no acute distress, answers questions appropriately - Head Head exam: Present: atraumatic, normocephalic - Eye Eye exam: Present: conjuntiva pink, sclera anicteric - Neck Neck exam general surgery: Present: supple, trachea midline. Absent: lymphadenopathy - Respiratory Respiratory exam: Present: decreased breath sounds, wheezes. Absent: accessory muscle use, rales, rhonchi - Cardiovascular Cardiovascular exam: Present: RRR, +S1, +S2. Absent: gallop, rubs - GI/Abdominal GI/Abdominal exam: Present: normal bowel sounds, soft, no peritoneal signs. Absent: distended, tenderness - Extremities Exam Extremities exam: Present: warm, radial pulses palpable and symmetrical. Absent : calf tenderness, cyanotic, pedal edema - Neurological Exam Neurological exam: Present: CN II-XII intact, oriented X3, no focal deficits. Absent: pronater drift, facial droop, speech deficit - Skin Skin exam: Present: dry, intact, warm Internal Med - H&P Results - Labs Labs: WBC 11.8, hemoglobin 9.8 hematocrit 29.1, platelets 92, sodium 136, potassium 5.0, creatinine 2.93, BUN 59, blood sugar 332, total bili 3.3, and direct bili 1.6, indirect bili 1.7, troponin 0.11, lactate 4.6, ABG revealed pH of 7.45 PCO2 31 PCO2 31 O2 sat 63%, blood cultures repeat lactic acid and ABG are pending <Jaya Narayan - Last Filed: 07/13/17 21:23> Date of Encounter: 07/13/17 Internal Medicine - H&P: HPI History of present illness: Mr. Bragg is a 87 year old male All Systems PM: A 10-system review of systems was performed and is negative for pertinent findings except as documented above in the HPI. - Constitutional Vitals: Temp Pulse Resp BP Pulse Ox 97.6 F 71 26 140/66 98 07/13/17 19:48 07/13/17 19:48 07/13/17 19:48 07/13/17 19:48 07/13/17 19:48 Internal Med - H&P Results - ABG Interpretation ABG results: 07/13/17 20:50 ABG pH 7.49 H ABG pCO2 33 L ABG pO2 95 D ABG HCO3 25 ABG Total CO2 26 ABG O2 Saturation 98 ABG Base Excess 1 - Attending Attestation I have personally performed a face to face evaluation on this patient. I have reviewed and agree with the care plan. History and Exam by me shows: XR/XR chest 1V portable IMPRESSION: Right lung infiltrate worrisome for pneumonia versus less likely pulmonary edema. Chronic blunting of the left CP angle suggesting persistent small left pleural effusion and/or pleural thickening. A/P Acute on chronic respiratory failure 2/2 PNA (possible gram negative) SIRs Lactic acidosis - IVF - gentle to avoid overload given CHF (ordered 50cc/hr for 1 L ) - IV zosyn, add levaquin for atypical in the off chance, send serologies - bipap, recheck abg improved - trend lactate - tracie Family does not know med list but will bring in the morning
[2017-07-13 20:53] LABS: ABG Base Excess 1 mEq/L (-2 to 3); ABG HCO3 25 mEq/L (21-27); ABG Oxygen Saturation 98 % (95-98); ABG PCO2 33 mmHg (35-45); ABG PH 7.49 pH Units (7.32-7.45); ABG PO2 95 mmHg (85-104); ABG TCO2 26 mEq/L (20-26); Blood Gas Modality NIV; Blood Gas Respiration Rate 8
[2017-07-13] MEDS: Piperacillin/Tazobactam 3.375 GM/200 ML BAG IVPB SCH (20:54)
[2017-07-13] MEDS: *HR* Heparin 5,000 UNIT/ML VIAL SQ SCH (20:55)
[2017-07-13] MEDS: Insulin LISPRO 300 UNITS/3 ML VIAL SQ SCH (21:03)
[2017-07-13] MEDS ORDERED: Ipratropium/Albuterol Neb 3 ML IH PRN (21:19)
[2017-07-13] MEDS: Ipratropium/Albuterol Neb 3 ML IH SCH (21:44)
[2017-07-14 01:13] LABS: Basophils % 0.2 %; Immature Granulocytes % 0.4 % (0-4)
[2017-07-14 01:15] LABS: Hematocrit 27.6 % (37.5-50.1); Immature Platelets 5.7 % (1.1-6.1); Lymphocytes # 0.4 K/mcL (0.6-4.6); Lymphocytes % 7.8 %; Mean Corpuscular HGB Conc 32.6 g/dL (31.6-35.5); Mean Corpuscular Hemoglobin 29.8 pg (28.0-33.3); Mean Corpuscular Volume 91.4 fL (83.0-100.0); Mean Platelet Volume 11.9 fL (9.4-12.4); Monocytes # 0.1 K/mcL (0.0-1.3); Monocytes % 1.8 %; Red Blood Count 3.02 M/mcL (4.19-5.50); Red Cell Distribution Width 14.6 % (11.5-14.5); Segmented Neutrophils % 89.8 %
[2017-07-14 01:18] LABS: Neutrophils # 4.9 K/mcL (1.6-8.9); Platelet Count 66 K/mcL (140-400)
[2017-07-14 01:19] LABS: INR 1.5
[2017-07-14 01:22] LABS: Activated Partial Thrombo Time 27.7 Seconds (26.0-36.0)
[2017-07-14 01:28] LABS: Albumin 3.4 g/dL (3.5-5.7); Albumin/Globulin Ratio 1.1 (1.1-2.2); Bilirubin,Total 2.1 mg/dL (0.3-1.0); Globulin 3.1 g/dL (2.4-3.5); Magnesium 1.9 mg/dL (1.6-2.6); Phosphorous 3.6 mg/dL (2.7-4.5); Potassium 4.8 mEq/L (3.5-5.1); Total Protein 6.5 g/dL (6.4-8.9)
[2017-07-14] MEDS: Ipratropium/Albuterol Neb 3 ML IH SCH ×4 (04:12→20:04)
[2017-07-14] MEDS: *HR* Heparin 5,000 UNIT/ML VIAL SQ SCH ×2 (06:03→18:06)
[2017-07-14] MEDS: Insulin LISPRO 300 UNITS/3 ML VIAL SQ SCH ×4 (09:22→21:16)
[2017-07-14] MEDS: MethylPREDNISolone 40 MG/ML VIAL IVP SCH ×4 (09:25→23:19)
[2017-07-14] MEDS: Piperacillin/Tazobactam 3.375 GM/200 ML BAG IVPB SCH ×2 (09:25→21:15)
--- NOTE | 2017-07-14 09:29 | Internal Med Progress Note ---
<Ariel Ulrich - Last Filed: 07/14/17 11:27> Date of Encounter: 07/14/17 Time of Encounter: 09:28 - Assessment and plan (1) Acute on chronic respiratory failure with hypoxemia Current Visit: Yes Status: Acute Assessment and plan: No history of COPD/Emphysema, but does use oxygen 1-2L as needed during exertion. No nocturnal use Quit smoking in 1974 but did smoke 3 PPD for 25 years Possible history of environmental exposure ABG trending well [place]: pH 7.45, pCO2 31, pO2 31, HCO3 22 Repeat here: pH 7.49, pCO2 33, pO2 95, HCO3 25 Tolerating BiPAP overnight Highflow oxygen during the day as tolerated CXR suggestive of right lung infiltrative process vs pulmonary edema There is a high concern for ARDS developing Ordered chest CT this morning: Bilateral airspace consolidation involving the upper and lower lobes, right greater than left, with small bilateral pleural effusions, suggesting aviral or atypical bronchopneumonia. Lactic acid resolved and liver/kidney function improving Patient is still high risk and will require close monitoring throughout the day (2) Community acquired pneumonia Current Visit: Yes Status: Acute Assessment and plan: WBC 11.8 at [place], trending VSS, no longer tachypneic CXR suggest right lung infiltrative process vs pulmonary edema Ordered chest CT this morning: Bilateral airspace consolidation involving the upper and lower lobes, right greater than left, with small bilateral pleural effusions, suggesting aviral or atypical bronchopneumonia. Recent bout of emesis later in the week Very tight on exam on right side with poor air movement Plan: IV Zosyn and Levaquin day 2 O2 supplementation - High flow as tolerated and otherwise will use BiPAP DANIEL Duonebs Solu-Medrol Ordered respiratory panel Blood cultures pending Legionella and Strep Pneumo antigen pending Qualifiers: Laterality: right Lung location: unspecified part of lung Qualified Code( s): J18.9 - Pneumonia, unspecified organism (3) Combined systolic and diastolic congestive heart failure Current Visit: Yes Status: Acute Assessment and plan: Last known ECHO 04/09/2017: - EF 40-45% - Mild LV systolic dysfunction with mild-moderate concentric left ventricular hypertrophy - Moderate left ventricular diastolic dysfunction. - Mildly dilated left atrium. - No significant valvular dysfunction. - Wall motion abnormalities: The apex, apical inferior, mid inferior, basal inferior, apical septal and mid anterior septal plasencia were hypokinetic. Does not appear to be in acute exacerbation No LE edema but CXR does suggest possible pulmonary edema, mild bump in BNP Continue medical management when med rec'd: Statin ASA, ACEi, BB, holding lasix for now Daily weights Qualifiers: Congestive heart failure chronicity: acute on chronic Qualified Code(s): I50.43 - Acute on chronic combined systolic (congestive) and diastolic ( congestive) heart failure (4) Ischemic cardiomyopathy Current Visit: Yes Status: Acute Assessment and plan: History of CABG in 2004 Last known ECHO 04/09/2017: - EF 40-45% - Mild LV systolic dysfunction with mild-moderate concentric left ventricular hypertrophy - Moderate left ventricular diastolic dysfunction. - Mildly dilated left atrium. - No significant valvular dysfunction. - Wall motion abnormalities: The apex, apical inferior, mid inferior, basal inferior, apical septal and mid anterior septal plasencia were hypokinetic. Continue medical management when med rec'd: Home regimen - Statin ASA, ACEi, BB , holding Lasix for now (5) Acute kidney injury superimposed on chronic kidney disease Current Visit: Yes Status: Acute Assessment and plan: Trending down Cr 2.93 - 2.79 D/c fluids Will continue to trend (6) T2DM (type 2 diabetes mellitus) Current Visit: Yes Status: Acute Assessment and plan: BS elevated last two days in 300s Restarted long acting Continue LDSS coverage Diabetic diet Qualifiers: Diabetes mellitus complication status: without complication Diabetes mellitus management supervisor insulin use: without mcfp use Qualified Code(s): E11.9 - Type 2 diabetes mellitus without complications (7) Elevated lactic acid level Current Visit: Yes Status: Acute Assessment and plan: Resolved 4.8 -> 1.9 Continue to trend (8) Severe sepsis Current Visit: Yes Status: Acute Assessment and plan: Leukocytosis and tachypnea at [place], known infection Hypoxia and renal impairment, Lactic acid 4.6 -> 1.9 Appears to be resolving well since transfer Vital signs stable Telemetry Bilirubin trending down Patient is still high risk and will require close monitoring throughout the day (9) HLD (hyperlipidemia) Current Visit: Yes Status: Acute Assessment and plan: Home statin therapy not confirmed yet Qualifiers: Hyperlipidemia type: unspecified Qualified Code(s): E78.5 - Hyperlipidemia , unspecified (10) HTN (hypertension), benign Current Visit: No Status: Chronic Assessment and plan: Well controlled at this time. Home meds not confirmed yet. (11) Serum total bilirubin elevated Current Visit: Yes Status: Acute Assessment and plan: Bili trending down to 2.1 today Likely etiology from sepsis US abdomen ordered - Pending Will continue to trend (12) DVT prophylaxis Current Visit: Yes Status: Acute Assessment and plan: Heparin SQ 5000 units q12 hrs - Subjective Interval history: Patient is admitted for PNA with acute on chronic respiratory failure He is resting comfortably on Oxymask during evaluation States that his breathing is better this morning No concerns overnight per nursing - Tolerated BiPAP Denies any new CP, fevers, chills, palpitations, abdominal pain or GI issues - Constitutional Vitals: Temp Pulse Resp BP Pulse Ox 98 F 63 24 136/67 93 07/14/17 03:42 07/14/17 03:42 07/14/17 04:12 07/14/17 04:12 07/14/17 07:19 General appearance: Present: A&O X 3, pleasant, no acute distress, answers questions appropriately - Head Head exam: Present: atraumatic, normocephalic - Eye Eye exam: Present: EOMI, normal appearance, conjuntiva pink, sclera anicteric - ENT ENT exam: Present: mucous membranes moist - Neck Neck exam general surgery: Present: supple, trachea midline - Respiratory Respiratory exam: Present: decreased breath sounds (R>L), rales (R>L), rhonchi ( R>L), wheezes (diffuse). Absent: respiratory distress, tachypnea - Cardiovascular Cardiovascular exam: Present: RRR, +S1, +S2 - GI/Abdominal GI/Abdominal exam: Present: normal bowel sounds, soft. Absent: tenderness - Extremities Exam Extremities exam: Present: warm. Absent: pedal edema, tenderness - Neurological Exam Neurological exam: Present: alert, oriented X3, no focal deficits - Psychiatric Psychiatric exam: Present: normal affect, normal mood - Skin Skin exam: Present: dry, warm. Absent: diaphoretic Internal Medicine: Result - Labs CBC & Chem 7: 07/14/17 00:58 07/14/17 00:58 Labs: Short CBC 07/14/17 Range/Units 00:58 WBC 5.5 D (4.3-11.1) K/mcL Hgb 9.0 L (12.9-16.9) g/dL Hct 27.6 L (37.5-50.1) % Plt Count 66 L (140-400) K/mcL Neutrophils # 4.9 (1.6-8.9) K/mcL BMP 07/14/17 00:58 Sodium 134 L Potassium 4.8 Chloride 102 Carbon Dioxide 22 L BUN 67 H Creatinine 2.79 H Glucose 325 H Calcium 9.0 Cardiac Enzymes 07/13/17 07/14/17 07/14/17 Range/Units 20:22 00:58 07:32 Troponin I 0.07 H* 0.06 H* 0.04 H* (< 0.04) ng/mL Liver Function 07/14/17 Range/Units 00:58 Total Bilirubin 2.1 H (0.3-1.0) mg/dL AST 15 (13-39) Units/L ALT 14 (7-52) Units/L Alkaline Phosphatase 96 (34-104) Units/L Albumin 3.4 L (3.5-5.7) g/dL - ABG Interpretation ABG results: ABG ABG pH 7.49 pH Units (7.32-7.45) H 07/13/17 20:50 ABG pCO2 33 mmHg (35-45) L 07/13/17 20:50 ABG pO2 95 mmHg (85-104) D 07/13/17 20:50 ABG O2 Saturation 98 % (95-98) 07/13/17 20:50 PT/INR, D-dimer PT 16.0 Seconds (9.4-12.1) H 07/14/17 00:58 Consult Discharge Plan - Plan [facility]errals: [facility]Primary Care Provider[facility] - <Mariah Carroll - Last Filed: 07/14/17 13:48> Date of Encounter: 07/14/17 - Constitutional Vitals: Temp Pulse Resp BP Pulse Ox 97.8 F 74 18 146/71 90 07/14/17 11:36 07/14/17 11:36 07/14/17 11:36 07/14/17 11:36 07/14/17 11:36 Internal Medicine: Result - Labs CBC & Chem 7: 07/14/17 00:58 07/14/17 00:58 Labs: Short CBC 07/14/17 Range/Units 00:58 WBC 5.5 D (4.3-11.1) K/mcL Hgb 9.0 L (12.9-16.9) g/dL Hct 27.6 L (37.5-50.1) % Plt Count 66 L (140-400) K/mcL Neutrophils # 4.9 (1.6-8.9) K/mcL BMP 07/14/17 00:58 Sodium 134 L Potassium 4.8 Chloride 102 Carbon Dioxide 22 L BUN 67 H Creatinine 2.79 H Glucose 325 H Calcium 9.0 Cardiac Enzymes 07/13/17 07/14/17 07/14/17 Range/Units 20:22 00:58 07:32 Troponin I 0.07 H* 0.06 H* 0.04 H* (< 0.04) ng/mL Liver Function 07/14/17 Range/Units 00:58 Total Bilirubin 2.1 H (0.3-1.0) mg/dL AST 15 (13-39) Units/L ALT 14 (7-52) Units/L Alkaline Phosphatase 96 (34-104) Units/L Albumin 3.4 L (3.5-5.7) g/dL - ABG Interpretation ABG results: ABG ABG pH 7.49 pH Units (7.32-7.45) H 07/13/17 20:50 ABG pCO2 33 mmHg (35-45) L 07/13/17 20:50 ABG pO2 95 mmHg (85-104) D 07/13/17 20:50 ABG O2 Saturation 98 % (95-98) 07/13/17 20:50 PT/INR, D-dimer PT 16.0 Seconds (9.4-12.1) H 07/14/17 00:58 - Impressions Impressions Chest CT 07/14/17 09:05 IMPRESSION: 1. Bilateral airspace consolidation involving the upper and lower lobes, right greater than left, with small bilateral pleural effusions, suggesting a viral or atypical bronchopneumonia. 2. Nodular contour of the liver, suggesting cirrhosis. 3. Cholelithiasis. 4. Small hiatal hernia. 5. Severe coronary artery atherosclerosis. D/ / 07/14/2017 10:42:17 Wei Lofton MD / tomy Interpreting Provider: Wei Lofton MD - Attending Attestation I examined this patient and my medical decision-making was reviewed with the Resident Physician Dr. Ulrich. I agree with the documented findings, disposition and treatment plan as described except to the extent set forth below. Mr. Bragg is a 87 y/o M with known combined systolic and diastolic CHF, COPD , coronary artery disease, diabetes, myocardial infarction, and CKD-3 pt presented to [facility] ER with progressively worsening SOB and Hypoxia. He was admitted here for MLL Pneumonia and acute hypoxic resp failure. pt just came off the BiPAP , currently on Oxy mask. Denied any CP. Stated he is feeling little better. Gen: A, A, O x 3 Chest: Diminished BS, Diffuse wheezing, No crackles Heart: S1S2+ a/p 1. Acute on chronic hypoxic resp failure 2. Acute MLL PNA - mostly bacterial 3. Sepsis with elevated LA, source of inf as PNA 4. Acute COPD exacerbation Cont empirical abx check resp viral panel held IVF for now IV steroids 5. Acute pulm edema - due to PNA will hold on diuretics for now due to sepsis if pt becomes more SOB will use Lasix PRN 6. CKD-3 cont close monitoring
[2017-07-14] MEDS ORDERED: Furosemide 40 MG/4 ML VIAL IVP SCH (10:00)
[2017-07-14] MEDS ORDERED: Albuterol 2.5 MG/3 ML NEBULIZER IH PRN (12:03)
[2017-07-14] MEDS: Levofloxacin 250 MG/50 ML 250 MG/50 ML BAG IVPB SCH (14:27)
[2017-07-14 19:50] LABS: Adenovirus Not Detected (Not Detect); Bordetella Pertussis Not Detected (Not Detect); Chlamydophila pneumoniae Not Detected (Not Detect); Coronavirus 229E Not Detected (Not Detect); Coronavirus HKU1 Not Detected (Not Detect); Coronavirus NL63 Not Detected (Not Detect); Coronavirus OC43 Not Detected (Not Detect); Human Metapneumovirus Not Detected (Not Detect); Human Rhinovirus/Enterovirus Not Detected (Not Detect); Influenza A Subtype 2009 H1 Not Detected (Not Detect); Influenza A Untypeable Not Detected (Not Detect); Influenza B Not Detected (Not Detect); Mycoplasma pneumoniae Not Detected (Not Detect); Parainfluenza Virus 1 Not Detected (Not Detect); Parainfluenza Virus 2 Not Detected (Not Detect); Parainfluenza Virus 3 Not Detected (Not Detect); Parainfluenza Virus 4 Not Detected (Not Detect); Respiratory Syncytial Virus Not Detected (Not Detect)
[2017-07-14] MEDS: Insulin DETEMIR 100 UNIT/ML X5UNITS SQ SCH (21:15)
[2017-07-15] MEDS: Ipratropium/Albuterol Neb 3 ML IH SCH ×6 (00:28→20:00)
[2017-07-15 04:41] LABS: Hemoglobin 9.3 g/dL (12.9-16.9)
[2017-07-15 04:44] LABS: Hematocrit 28.4 % (37.5-50.1); Immature Granulocytes % 0.6 % (0-4); Immature Platelets 7.4 % (1.1-6.1); Lymphocytes # 0.3 K/mcL (0.6-4.6); Lymphocytes % 5.9 %; Mean Corpuscular HGB Conc 32.7 g/dL (31.6-35.5); Mean Corpuscular Hemoglobin 29.9 pg (28.0-33.3); Mean Corpuscular Volume 91.3 fL (83.0-100.0); Monocytes # 0.1 K/mcL (0.0-1.3); Neutrophils # 4.9 K/mcL (1.6-8.9); Red Blood Count 3.11 M/mcL (4.19-5.50); Red Cell Distribution Width 14.6 % (11.5-14.5); Segmented Neutrophils % 91.5 %
[2017-07-15 05:09] LABS: Albumin 3.3 g/dL (3.5-5.7); Albumin/Globulin Ratio 1.1 (1.1-2.2); Bilirubin,Total 1.2 mg/dL (0.3-1.0); Globulin 3.1 g/dL (2.4-3.5); Potassium 4.4 mEq/L (3.5-5.1); Total Protein 6.4 g/dL (6.4-8.9)
[2017-07-15 05:33] LABS: Platelet Count 71 K/mcL (140-400)
[2017-07-15] MEDS: MethylPREDNISolone 40 MG/ML VIAL IVP SCH ×3 (06:20→16:37)
[2017-07-15] MEDS: *HR* Heparin 5,000 UNIT/ML VIAL SQ SCH ×2 (06:20→16:37)
[2017-07-15] MEDS: Insulin LISPRO 300 UNITS/3 ML VIAL SQ SCH ×4 (08:49→21:00)
[2017-07-15] MEDS: Piperacillin/Tazobactam 3.375 GM/200 ML BAG IVPB SCH ×2 (08:50→20:57)
--- NOTE | 2017-07-15 13:54 | Internal Med Progress Note ---
<Wilbur Christianson - Last Filed: 07/15/17 14:27> Date of Encounter: 07/15/17 Time of Encounter: 13:51 - Assessment and plan (1) Acute on chronic respiratory failure with hypoxemia Current Visit: Yes Status: Acute Assessment and plan: Most likely multifactoral Bacterial, acute CHF, acute COPD, aspiration, environmental causes. Possible hx of COPD. Uses O2 multiple times a week. 75 pack year history quit in 1974. tolerating Bipap overnight. CT chest: Bilateral airspace consolidation involving the upper and lower lobes, right greater than left, with small bilateral pleural effusions, suggesting aviral or atypical bronchopneumonia. Lactic acidosis resolved. Blood cx negative for growth. Currently hemodynamically stable and improving - weening O2 NC - closely monitor for O2, and symptoms - Lasix 40 mg IV BID started - Legionella and S. PNA pending - encourage Incentive spirometry (2) Severe sepsis Current Visit: Yes Status: Acute Assessment and plan: Leukocytosis and tachypnea at [place], known infection. On admission, Hypoxia and renal impairment, Lactic acid 4.6 -> 1.9. Appears to have resolved since admission. Vitals stable. T. Bili 2.1 -> 1.2 (today) - closely monitor vitals - ct telemetry - bili trending (3) Ischemic cardiomyopathy Current Visit: Yes Status: Acute Assessment and plan: History of CABG in 2004 Last known ECHO 04/09/2017: - EF 40-45% - Mild LV systolic dysfunction with mild-moderate concentric left ventricular hypertrophy - Moderate left ventricular diastolic dysfunction. - Mildly dilated left atrium. - No significant valvular dysfunction. - Wall motion abnormalities: The apex, apical inferior, mid inferior, basal inferior, apical septal and mid anterior septal plasencia were hypokinetic. Continue medical management when med rec'd: Home regimen - Statin ASA, ACEi, BB , holding Lasix for now (4) T2DM (type 2 diabetes mellitus) Current Visit: Yes Status: Acute Assessment and plan: BS elevated last two days in 300s Restarted long acting Continue LDSS coverage Diabetic diet Qualifiers: Diabetes mellitus complication status: without complication Diabetes mellitus residential insulin use: without residential use Qualified Code(s): E11.9 - Type 2 diabetes mellitus without complications (5) HLD (hyperlipidemia) Current Visit: Yes Status: Acute Assessment and plan: Home statin therapy not confirmed yet Qualifiers: Hyperlipidemia type: unspecified Qualified Code(s): E78.5 - Hyperlipidemia , unspecified (6) Elevated lactic acid level Current Visit: Yes Status: Acute Assessment and plan: Resolved 4.8 -> 1.9 Continue to trend (7) DVT prophylaxis Current Visit: Yes Status: Acute Assessment and plan: Heparin SQ 5000 units q12 hrs (8) Community acquired pneumonia Current Visit: Yes Status: Acute Assessment and plan: WBC 11.8 at [place], trending VSS, no longer tachypneic CXR suggest right lung infiltrative process vs pulmonary edema Ordered chest CT this morning: Bilateral airspace consolidation involving the upper and lower lobes, right greater than left, with small bilateral pleural effusions, suggesting aviral or atypical bronchopneumonia. Recent bout of emesis later in the week Very tight on exam on right side with poor air movement Plan: IV Zosyn and Levaquin day 2 O2 supplementation - High flow as tolerated and otherwise will use BiPAP DANIEL Duonebs Solu-Medrol Ordered respiratory panel Blood cultures pending Legionella and Strep Pneumo antigen pending Qualifiers: Laterality: right Lung location: unspecified part of lung Qualified Code( s): J18.9 - Pneumonia, unspecified organism (9) Acute kidney injury superimposed on chronic kidney disease Current Visit: Yes Status: Acute Assessment and plan: Trending down Cr 2.93 - 2.79 -> 2.68 - Will continue to trend (10) Serum total bilirubin elevated Current Visit: Yes Status: Acute Assessment and plan: Bili trending down to 1.2 today. U/S abd - cirrhotic liver Likely etiology from sepsis Will continue to trend (11) Combined systolic and diastolic congestive heart failure Current Visit: Yes Status: Acute Assessment and plan: Last known ECHO 04/09/2017: - EF 40-45% - Mild LV systolic dysfunction with mild-moderate concentric left ventricular hypertrophy - Moderate left ventricular diastolic dysfunction. - Mildly dilated left atrium. - No significant valvular dysfunction. - Wall motion abnormalities: The apex, apical inferior, mid inferior, basal inferior, apical septal and mid anterior septal plasencia were hypokinetic. Does not appear to be in acute exacerbation No LE edema but CXR does suggest possible pulmonary edema, mild bump in BNP Continue medical management when med rec'd: Statin ASA, ACEi, BB, holding lasix for now Daily weights Qualifiers: Congestive heart failure chronicity: acute on chronic Qualified Code(s): I50.43 - Acute on chronic combined systolic (congestive) and diastolic ( congestive) heart failure - Subjective Interval history: Ms Bragg is an 87 yo M w/ PMH CHF, COPD, CAD, DM, UT, CKD3 admitted for PNA w / acute on chronic respiratory failure. Patient reports that he does have PND and SOB on exertion. And uses home O2 multiple times a week. Today he reports that he's not having trouble breathing on O2 NC. He feels better today. - Constitutional Vitals: Temp Pulse Resp BP Pulse Ox 97.9 F 90 15 158/87 92 07/15/17 11:23 07/15/17 11:35 07/15/17 11:23 07/15/17 11:23 07/15/17 11:23 General appearance: Present: A&O X 3, pleasant, no acute distress, answers questions appropriately - Respiratory Respiratory exam: Present: wheezes (bilaterally diffuse). Absent: accessory muscle use, decreased breath sounds, rales, respiratory distress, stridor - Cardiovascular Cardiovascular exam: Present: RRR, +S1, +S2. Absent: diastolic murmur, gallop, rubs, systolic murmur - GI/Abdominal GI/Abdominal exam: Present: normal bowel sounds, soft, no peritoneal signs. Absent: distended, tenderness - Psychiatric Psychiatric exam: Present: normal affect, normal mood Internal Medicine: Result - Labs CBC & Chem 7: 07/15/17 03:50 07/15/17 03:50 Labs: Short CBC 07/15/17 Range/Units 03:50 WBC 5.4 (4.3-11.1) K/mcL Hgb 9.3 L (12.9-16.9) g/dL Hct 28.4 L (37.5-50.1) % Plt Count 71 L (140-400) K/mcL Neutrophils # 4.9 (1.6-8.9) K/mcL BMP 07/15/17 03:50 Sodium 137 Potassium 4.4 Chloride 105 Carbon Dioxide 22 L BUN 78 H Creatinine 2.68 H Glucose 327 H Calcium 9.0 Liver Function 07/15/17 Range/Units 03:50 Total Bilirubin 1.2 H (0.3-1.0) mg/dL AST 21 (13-39) Units/L ALT 18 (7-52) Units/L Alkaline Phosphatase 95 (34-104) Units/L Albumin 3.3 L (3.5-5.7) g/dL - ABG Interpretation ABG results: ABG ABG pH 7.49 pH Units (7.32-7.45) H 07/13/17 20:50 ABG pCO2 33 mmHg (35-45) L 07/13/17 20:50 ABG pO2 95 mmHg (85-104) D 07/13/17 20:50 ABG O2 Saturation 98 % (95-98) 07/13/17 20:50 PT/INR, D-dimer PT 16.0 Seconds (9.4-12.1) H 07/14/17 00:58 - Impressions Impressions Chest CT 07/14/17 09:05 IMPRESSION: 1. Bilateral airspace consolidation involving the upper and lower lobes, right greater than left, with small bilateral pleural effusions, suggesting a viral or atypical bronchopneumonia. 2. Nodular contour of the liver, suggesting cirrhosis. 3. Cholelithiasis. 4. Small hiatal hernia. 5. Severe coronary artery atherosclerosis. D/ / 07/14/2017 10:42:17 Wei Lofton MD / [facility] Interpreting Provider: Wei Lofton MD Abdomen Ultrasound 07/15/17 08:00 IMPRESSION: 1. Cirrhotic liver. No focal liver lesion. 2. Cholelithiasis without secondary findings of cholecystitis. 3. Relatively hypoechoic pancreatic parenchyma, a finding that can be seen with pancreatitis. However, no associated peripancreatic fluid to suggest this diagnosis. 4. At least 1 nonobstructing calculus in the right renal collecting system. D/ / Isiah Deleon MD / Isiah Deleon MD Interpreting Provider: Isiah Deleon MD - VTE Documentation of Mechanical Device: Intermittent pneumatic compression device Consult Discharge Plan - Plan [facility]errals: [facility] Provider[facility] - ([facility]) <Mariah Carroll - Last Filed: 07/15/17 15:36> Date of Encounter: 07/15/17 - Constitutional Vitals: Temp Pulse Resp BP Pulse Ox 97.9 F 93 15 158/87 92 07/15/17 11:23 07/15/17 15:28 07/15/17 11:23 07/15/17 11:23 07/15/17 11:23 Internal Medicine: Result - Labs CBC & Chem 7: 07/15/17 03:50 07/15/17 03:50 Labs: Short CBC 07/15/17 Range/Units 03:50 WBC 5.4 (4.3-11.1) K/mcL Hgb 9.3 L (12.9-16.9) g/dL Hct 28.4 L (37.5-50.1) % Plt Count 71 L (140-400) K/mcL Neutrophils # 4.9 (1.6-8.9) K/mcL BMP 07/15/17 03:50 Sodium 137 Potassium 4.4 Chloride 105 Carbon Dioxide 22 L BUN 78 H Creatinine 2.68 H Glucose 327 H Calcium 9.0 Liver Function 07/15/17 Range/Units 03:50 Total Bilirubin 1.2 H (0.3-1.0) mg/dL AST 21 (13-39) Units/L ALT 18 (7-52) Units/L Alkaline Phosphatase 95 (34-104) Units/L Albumin 3.3 L (3.5-5.7) g/dL - ABG Interpretation ABG results: ABG ABG pH 7.49 pH Units (7.32-7.45) H 07/13/17 20:50 ABG pCO2 33 mmHg (35-45) L 07/13/17 20:50 ABG pO2 95 mmHg (85-104) D 07/13/17 20:50 ABG O2 Saturation 98 % (95-98) 07/13/17 20:50 PT/INR, D-dimer PT 16.0 Seconds (9.4-12.1) H 07/14/17 00:58 - Impressions Impressions Abdomen Ultrasound 07/15/17 08:00 IMPRESSION: 1. Cirrhotic liver. No focal liver lesion. 2. Cholelithiasis without secondary findings of cholecystitis. 3. Relatively hypoechoic pancreatic parenchyma, a finding that can be seen with pancreatitis. However, no associated peripancreatic fluid to suggest this diagnosis. 4. At least 1 nonobstructing calculus in the right renal collecting system. D/ / Isiah Deleon MD / Isiah Deleon MD Interpreting Provider: Isiah Deleon MD - Attending Attestation I examined this patient and my medical decision-making was reviewed with the Resident Physician Dr. Christianson. I agree with the documented findings, disposition and treatment plan as described except to the extent set forth below. Mr. Bragg is a 87 y/o M with known combined systolic and diastolic CHF, COPD , coronary artery disease, diabetes, myocardial infarction, and CKD-3 pt presented to [facility] ER with progressively worsening SOB and Hypoxia. He was admitted here for MLL Pneumonia and acute hypoxic resp failure. pt just came off the BiPAP , currently on Oxy mask. Denied any CP. Stated he is feeling lot better today. Still on 6 lit high flow O2 NC Gen: A, A, O x 3 Chest: Diminished BS, Diffuse wheezing, No crackles Heart: S1S2+ a/p 1. Acute on chronic hypoxic resp failure 2. Acute MLL PNA - mostly bacterial 3. Sepsis with elevated LA, source of inf as PNA 4. Acute COPD exacerbation Improving Cont empirical abx resp viral panel- negative Cont tapering IV steroids will start him on IV diuretics 5. Acute pulm edema - due to PNA on IV Lasix x 2 doses 6. Acute on chronic systolic CHF exacerbation mild exacerbation started on diuretics 7. CKD-3 cont close monitoring
--- NOTE | 2017-07-15 13:57 | Electrocardiograph Report ---
[address] [place] [address] Test Date: 2017-07-13 Pat Name: Gil Bragg Department: 110 Room: 2N04 Gender: M [employer]ending [employer]: ANGI : 1930 Requested By: Jaya Narayan Order Number: [id number] Reading MD: Lynda Tellez Measurements Intervals [place] Rate: 73 P: 61 TX: 186 QRS: -17 QRSD: 116 T: -1 QT: 417 QTc: 443 Interpretive Statements SINUS RHYTHM POSSIBLE ANTERIOR MYOCARDIAL INFARCTION, OF INDETERMINATE AGE INFERIOR MYOCARDIAL INFARCTION, PROBABLY OLD Electronically Signed On 07-15-2017 13:55:51 EST by Lynda Telelz
[2017-07-15] MEDS: Levofloxacin 250 MG/50 ML 250 MG/50 ML BAG IVPB SCH (15:20)
[2017-07-15] MEDS: Furosemide 40 MG/4 ML VIAL IVP SCH (16:37)
[2017-07-15] MEDS: Insulin DETEMIR 100 UNIT/ML X5UNITS SQ SCH (21:00)
[2017-07-16] MEDS: Ipratropium/Albuterol Neb 3 ML IH SCH ×6 (00:03→20:13)
[2017-07-16] MEDS: MethylPREDNISolone 40 MG/ML VIAL IVP SCH ×5 (04:20→23:46)
[2017-07-16] MEDS: Furosemide 40 MG/4 ML VIAL IVP SCH ×2 (06:17→17:31)
[2017-07-16] MEDS: *HR* Heparin 5,000 UNIT/ML VIAL SQ SCH ×2 (06:18→17:32)
[2017-07-16] MEDS: Insulin LISPRO 300 UNITS/3 ML VIAL SQ SCH ×4 (07:35→20:17)
[2017-07-16] MEDS: Piperacillin/Tazobactam 3.375 GM/200 ML BAG IVPB SCH ×2 (09:08→20:17)
[2017-07-16] MEDS: Levofloxacin 250 MG/50 ML 250 MG/50 ML BAG IVPB SCH (16:18)
[2017-07-16 16:36] LABS: Magnesium 1.8 mg/dL (1.6-2.6); Potassium 4.2 mEq/L (3.5-5.1)
--- NOTE | 2017-07-16 20:10 | Internal Med Progress Note ---
Date of Encounter: 07/16/17 Time of Encounter: 10:07 - Assessment and plan (1) CKD (chronic kidney disease) Current Visit: Yes Status: Chronic Assessment and plan: Monitor BUN and creatinine. Strict I's and O's. Avoid nephrotoxins. Qualifiers: Chronic kidney disease stage: stage 3 (moderate) Qualified Code(s): N18.3 - Chronic kidney disease, stage 3 (moderate) (2) Diabetes mellitus Current Visit: Yes Status: Acute Assessment and plan: Uncontrolled diabetes mellitus. Worsening today blood glucose. We will continue with insulin Levemir and Humalog sliding scale. We will add back his home dose of glipizide. Qualifiers: Diabetes mellitus type: type 2 Diabetes mellitus complication status: with unspecified complications Diabetes mellitus terminal gauger supervisor insulin use: with jail use Qualified Code(s): E11.8 - Type 2 diabetes mellitus with unspecified complications; Z79.4 - terminal supervisor (current) use of insulin; Z79.4 - terminal supervisor ( current) use of insulin; Z79.4 - USP (current) use of insulin; Z79.4 - USP (current) use of insulin (3) Acute exacerbation of CHF (congestive heart failure) Current Visit: No Status: Acute Assessment and plan: Ejection fraction in March 2017 was 40-45%. Also moderate diastolic dysfunction noted. Continue with Lasix. Strict I's and O's. Daily weights. Fluid restriction. Qualifiers: Congestive heart failure type: combined Qualified Code(s): I50.43 - Acute on chronic combined systolic (congestive) and diastolic (congestive) heart failure (4) Ischemic cardiomyopathy Current Visit: Yes Status: Acute Assessment and plan: History of CABG in 2004 Last known ECHO 04/09/2017: - EF 40-45% - Mild LV systolic dysfunction with mild-moderate concentric left ventricular hypertrophy - Moderate left ventricular diastolic dysfunction. - Mildly dilated left atrium. - No significant valvular dysfunction. - Wall motion abnormalities: The apex, apical inferior, mid inferior, basal inferior, apical septal and mid anterior septal plasencia were hypokinetic. Continue medical management when med rec'd: Home regimen - Statin ASA, ACEi, BB , holding Lasix for now - Subjective Interval history: Patient reports shortness of breath has improved since yesterday. He still has more moderate generalized weakness, not associated with chest pain or fever. Per patient's primary nurse his oxygen saturation has maintained above 92 and his supplemental oxygen requirements have decreased over the last 24 hours. - Constitutional Vitals: Temp Pulse Resp BP Pulse Ox 98.7 F 87 20 181/83 95 07/16/17 19:56 07/16/17 19:56 07/16/17 19:56 07/16/17 19:56 07/16/17 19:56 General appearance: Present: A&O X 3, pleasant, no acute distress, answers questions appropriately - Respiratory Respiratory exam: Present: CTAB. Absent: accessory muscle use, rales, rhonchi, wheezes - Cardiovascular Cardiovascular exam: Present: irregular rhythm, RRR, +S1, +S2. Absent: diastolic murmur, gallop, rubs, systolic murmur - GI/Abdominal GI/Abdominal exam: Present: normal bowel sounds, soft, no peritoneal signs. Absent: distended, tenderness - Neurological Exam Neurological exam: Present: CN II-XII intact, oriented X3, no focal deficits. Absent: pronater drift, facial droop, speech deficit Internal Medicine: Result - Labs CBC & Chem 7: 07/15/17 03:50 07/16/17 16:17 Labs: BMP 07/16/17 16:17 Sodium 133 L Potassium 4.2 Chloride 102 Carbon Dioxide 20 L BUN 76 H Creatinine 2.54 H Glucose 422 H Calcium 9.0 - ABG Interpretation ABG results: ABG ABG pH 7.49 pH Units (7.32-7.45) H 07/13/17 20:50 ABG pCO2 33 mmHg (35-45) L 07/13/17 20:50 ABG pO2 95 mmHg (85-104) D 07/13/17 20:50 ABG O2 Saturation 98 % (95-98) 07/13/17 20:50 PT/INR, D-dimer PT 16.0 Seconds (9.4-12.1) H 07/14/17 00:58 - VTE Documentation of Mechanical Device: Intermittent pneumatic compression device Consult Discharge Plan - Plan Referrals: [facility] [Primary Care Provider] - 07/26/17 12:30 pm ()
[2017-07-16] MEDS: NIFEdipine XL (24 HR) 60 MG TAB.ER.24 PO SCH (20:46)
[2017-07-16] MEDS: *HR* GlipiZIDE 5 MG TABLET PO SCH (20:46)
[2017-07-16] MEDS: Insulin DETEMIR 100 UNIT/ML X5UNITS SQ SCH (20:46)
[2017-07-17] MEDS: Ipratropium/Albuterol Neb 3 ML IH SCH ×6 (00:24→20:46)
[2017-07-17 06:10] LABS: Hematocrit 28.4 % (37.5-50.1); Hemoglobin 9.4 g/dL (12.9-16.9); Immature Granulocytes % 1.5 % (0-4); Lymphocytes # 0.4 K/mcL (0.6-4.6); Lymphocytes % 10.8 %; Mean Corpuscular HGB Conc 33.1 g/dL (31.6-35.5); Mean Corpuscular Hemoglobin 29.8 pg (28.0-33.3); Mean Corpuscular Volume 90.2 fL (83.0-100.0); Mean Platelet Volume 12.7 fL (9.4-12.4); Monocytes # 0.1 K/mcL (0.0-1.3); Monocytes % 2.6 %; Neutrophils # 2.9 K/mcL (1.6-8.9); Red Blood Count 3.15 M/mcL (4.19-5.50); Red Cell Distribution Width 15.1 % (11.5-14.5); Segmented Neutrophils % 85.1 %
[2017-07-17 06:11] LABS: Platelet Count 79 K/mcL (140-400)
[2017-07-17] MEDS: MethylPREDNISolone 40 MG/ML VIAL IVP SCH ×3 (06:16→21:40)
[2017-07-17] MEDS: *HR* Heparin 5,000 UNIT/ML VIAL SQ SCH ×2 (06:16→16:22)
[2017-07-17] MEDS: Insulin LISPRO 300 UNITS/3 ML VIAL SQ SCH ×5 (07:49→21:41)
[2017-07-17] MEDS: Aspirin Enteric Coated 81 MG Tablet PO SCH (07:50)
[2017-07-17] MEDS: Furosemide 40 MG/4 ML VIAL IVP SCH (07:50)
[2017-07-17] MEDS: *HR* GlipiZIDE 5 MG TABLET PO SCH ×2 (07:50→16:28)
[2017-07-17] MEDS: NIFEdipine XL (24 HR) 60 MG TAB.ER.24 PO SCH (07:50)
[2017-07-17] MEDS: Piperacillin/Tazobactam 3.375 GM/200 ML BAG IVPB SCH ×2 (07:59→21:42)
[2017-07-17] MEDS ORDERED: Insulin DETEMIR 100 UNIT/ML X5UNITS SQ ONE (15:15)
[2017-07-17] MEDS: Levofloxacin 250 MG/50 ML 250 MG/50 ML BAG IVPB SCH (17:22)
--- NOTE | 2017-07-17 18:24 | Internal Med Progress Note ---
Date of Encounter: 07/17/17 Time of Encounter: 13:00 - Assessment and plan (1) CKD (chronic kidney disease) Current Visit: Yes Status: Chronic Assessment and plan: Monitor BUN and creatinine. Strict I's and O's. Avoid nephrotoxins. Qualifiers: Chronic kidney disease stage: stage 3 (moderate) Qualified Code(s): N18.3 - Chronic kidney disease, stage 3 (moderate) (2) Diabetes mellitus Current Visit: Yes Status: Acute Assessment and plan: Uncontrolled diabetes mellitus. Worsening blood glucose. IV steroids likely contributing to worsening glucose. I restarted his glipizide yesterday. We will increase Levemir, add pre-meal bolus insulin and continue with sliding scale coverage. Qualifiers: Diabetes mellitus type: type 2 Diabetes mellitus complication status: with unspecified complications Diabetes mellitus longwall machine operator helper insulin use: with longwall machine operator helper use Qualified Code(s): E11.8 - Type 2 diabetes mellitus with unspecified complications; Z79.4 - intermediate (current) use of insulin; Z79.4 - intermediate ( current) use of insulin; Z79.4 - intermediate (current) use of insulin; Z79.4 - intermediate (current) use of insulin (3) Acute exacerbation of CHF (congestive heart failure) Current Visit: No Status: Acute Assessment and plan: Ejection fraction in March 2017 was 40-45%. Also moderate diastolic dysfunction noted. Decrease Lasix from 40 mg IV daily. Strict I's and O's. Daily weights. Fluid restriction. Qualifiers: Congestive heart failure type: combined Qualified Code(s): I50.43 - Acute on chronic combined systolic (congestive) and diastolic (congestive) heart failure (4) Ischemic cardiomyopathy Current Visit: Yes Status: Acute Assessment and plan: History of CABG in 2004 Last known ECHO 04/09/2017: - EF 40-45% - Mild LV systolic dysfunction with mild-moderate concentric left ventricular hypertrophy - Moderate left ventricular diastolic dysfunction. - Mildly dilated left atrium. - No significant valvular dysfunction. - Wall motion abnormalities: The apex, apical inferior, mid inferior, basal inferior, apical septal and mid anterior septal plasencia were hypokinetic. Continue medical management when med rec'd: Home regimen - Statin ASA, ACEi, BB , holding Lasix for now - Subjective Interval history: Patient reports shortness of breath has improved since yesterday. He still has mild generalized weakness, not associated with chest pain or fever. Supplemental oxygen requirement has decreased over the last 24 hours. - Constitutional Vitals: Temp Pulse Resp BP Pulse Ox 97.7 F 77 19 117/77 91 07/17/17 15:59 07/17/17 16:09 07/17/17 15:59 07/17/17 15:59 07/17/17 15:59 General appearance: Present: A&O X 3, pleasant, no acute distress, answers questions appropriately - Neck Neck exam general surgery: Present: supple, trachea midline. Absent: lymphadenopathy - Respiratory Respiratory exam: Present: CTAB. Absent: accessory muscle use, rales, rhonchi, wheezes - Cardiovascular Cardiovascular exam: Present: RRR, +S1, +S2. Absent: diastolic murmur, gallop, rubs, systolic murmur - Extremities Exam Extremities exam: Present: warm, radial pulses palpable and symmetrical. Absent : calf tenderness, cyanotic, pedal edema Additional comments: Left BKA. Internal Medicine: Result - Labs CBC & Chem 7: 07/17/17 05:49 07/17/17 05:49 Labs: Short CBC 07/17/17 Range/Units 05:49 WBC 3.4 L (4.3-11.1) K/mcL Hgb 9.4 L (12.9-16.9) g/dL Hct 28.4 L (37.5-50.1) % Plt Count 79 L (140-400) K/mcL Neutrophils # 2.9 (1.6-8.9) K/mcL BMP 07/17/17 05:49 Sodium 136 Potassium 4.0 Chloride 103 Carbon Dioxide 24 BUN 78 H Creatinine 2.39 H Glucose 334 H Calcium 9.0 - ABG Interpretation ABG results: ABG ABG pH 7.49 pH Units (7.32-7.45) H 07/13/17 20:50 ABG pCO2 33 mmHg (35-45) L 07/13/17 20:50 ABG pO2 95 mmHg (85-104) D 07/13/17 20:50 ABG O2 Saturation 98 % (95-98) 07/13/17 20:50 PT/INR, D-dimer PT 16.0 Seconds (9.4-12.1) H 07/14/17 00:58 - VTE Documentation of Mechanical Device: Intermittent pneumatic compression device Consult Discharge Plan - Plan Referrals: [facility],PCP [Primary Care Provider] - 07/26/17 12:30 pm ()
[2017-07-17] MEDS: Insulin DETEMIR 100 UNIT/ML X5UNITS SQ SCH (21:41)
[2017-07-18] MEDS: Ipratropium/Albuterol Neb 3 ML IH SCH ×5 (00:30→16:13)
[2017-07-18 04:36] LABS: Hemoglobin 9.1 g/dL (12.9-16.9)
[2017-07-18 04:38] LABS: Hematocrit 27.6 % (37.5-50.1); Immature Platelets 3.9 % (1.1-6.1); Lymphocytes # 0.4 K/mcL (0.6-4.6); Mean Corpuscular Hemoglobin 29.8 pg (28.0-33.3); Mean Corpuscular Volume 90.5 fL (83.0-100.0); Mean Platelet Volume 12.1 fL (9.4-12.4); Monocytes # 0.2 K/mcL (0.0-1.3); Monocytes % 4.8 %; Neutrophils # 3.4 K/mcL (1.6-8.9); Red Blood Count 3.05 M/mcL (4.19-5.50); Red Cell Distribution Width 14.7 % (11.5-14.5); Segmented Neutrophils % 84.2 %
[2017-07-18 04:42] LABS: Platelet Count 75 K/mcL (140-400)
[2017-07-18 05:08] LABS: Calcium 8.9 mg/dL (8.6-10.3); Potassium 4.2 mEq/L (3.5-5.1)
[2017-07-18] MEDS: *HR* Heparin 5,000 UNIT/ML VIAL SQ SCH (06:30)
[2017-07-18] MEDS: Aspirin Enteric Coated 81 MG Tablet PO SCH (08:36)
[2017-07-18] MEDS: *HR* GlipiZIDE 5 MG TABLET PO SCH (08:36)
[2017-07-18] MEDS: Insulin LISPRO 300 UNITS/3 ML VIAL SQ SCH ×4 (08:37→12:03)
[2017-07-18] MEDS: MethylPREDNISolone 40 MG/ML VIAL IVP SCH (08:38)
[2017-07-18] MEDS: NIFEdipine XL (24 HR) 60 MG TAB.ER.24 PO SCH (08:40)
[2017-07-18] MEDS: Insulin DETEMIR 100 UNIT/ML X5UNITS SQ SCH (08:40)
[2017-07-18] MEDS ORDERED: Furosemide 40 MG/4 ML VIAL IVP SCH (09:00)
[2017-07-18] MEDS: Piperacillin/Tazobactam 3.375 GM/200 ML BAG IVPB SCH (09:51)
[2017-07-18] MEDS ORDERED: 0.9 % Sodium Chloride 1,000 ML IVC ONE (13:33)
[2017-07-18] MEDS ORDERED: 0.9 % Sodium Chloride 500 ML IVC ONE (13:40)
[2017-07-18 15:10] VITALS: BP 164/78
--- NOTE | 2017-07-18 15:11 | Event Note ---
Date of Encounter: 07/18/17 Time of Encounter: 15:25
--- NOTE | 2017-07-18 15:30 | Discharge Summary ---
Date of Encounter: 07/18/17 Time of Encounter: 15:25 - Discharge Diagnosis (1) CKD (chronic kidney disease) Priority: Secondary Status: Chronic Qualifiers: Chronic kidney disease stage: stage 3 (moderate) Qualified Code(s): N18.3 - Chronic kidney disease, stage 3 (moderate) (2) Diabetes mellitus Priority: Secondary Status: Acute Qualifiers: Diabetes mellitus type: type 2 Diabetes mellitus complication status: with unspecified complications Diabetes mellitus termite technician insulin use: with termite technician use Qualified Code(s): E11.8 - Type 2 diabetes mellitus with unspecified complications; Z79.4 - termite treater (current) use of insulin; Z79.4 - [facility] ( current) use of insulin; Z79.4 - [facility] (current) use of insulin; Z79.4 - [facility] (current) use of insulin (3) Acute exacerbation of CHF (congestive heart failure) Priority: Primary Status: Acute Qualifiers: Congestive heart failure type: combined Qualified Code(s): I50.43 - Acute on chronic combined systolic (congestive) and diastolic (congestive) heart failure (4) Ischemic cardiomyopathy Priority: Secondary Status: Acute (5) Severe sepsis Priority: Secondary Status: Ruled-out Comments: Severe sepsis was ruled out - Discharge Medications Prescriptions: Ipratropium/Albuterol Neb [Duoneb] 3 ml IH [id number] PRN #60 inhsol PRN Reason: Shortness Of Breath/Wheezing predniSONE [PredniSONE] 40 mg PO DAILY #10 tablet Home Medications: Allopurinol [Zyloprim 100 MG] 200 mg PO DAILY 07/13/17 [History] Aspirin [Lo-Dose Aspirin EC] 81 mg PO DAILY 07/13/17 [History] Atenolol [Tenormin] 25 mg PO BID 07/13/17 [History] Insulin Glargine,Hum.rec.anlog [Lantus Solostar] 15 unit SQ DAILY 07/13/17 [ History] [place]-3/Dha/Epa/Fish Oil [Fish Oil 1,000 mg Softgel] 3,000 mg PO DAILY 07/13/17 [History] Terazosin HCl 4 mg PO HS 07/13/17 [History] Atorvastatin [Lipitor] 40 mg PO HS 07/14/17 [History] Ferrous Gluconate 324 mg PO DAILY 07/14/17 [History] Multivitamin-Min/Iron/FA/Vit K [Multi-Day Plus Minerals Tablet] 1 each PO DAILY 07/14/17 [History] NIFEdipine [Nifedipine ER] 60 mg PO DAILY 07/14/17 [History] glipiZIDE [Glipizide] 10 mg PO QAM 07/14/17 [History] glipiZIDE [Glucotrol] 5 mg PO QPM 07/14/17 [History] Furosemide [Lasix] 40 mg PO DAILY #0 07/18/17 [Rx] Ipratropium/Albuterol Neb [Duoneb] 3 ml IH [id number] PRN #60 inhsol 07/18/17 [Rx] predniSONE [PredniSONE] 40 mg PO DAILY #10 tablet 07/18/17 [Rx] Allergies/Adverse Reactions: 3 Allergy/AdvReac Type Severity Reaction Status Date / Time No Known Allergies Allergy Verified 04/08/17 07:42 Date of admission: 07/13/17 17:36 [facility] care physician: [facility] Consults: 07/13/17 18:02 Consult to Art Consultant [CONS] Routine Reason for SW Consult: discharge planning 07/16/17 11:27 Consult to Occupational Therapy [CONS] Routine Comment: Evaluate, develop and implement POC Reason for Consult: Dec. mobility Consult to Physical Therapy [CONS] Routine Comment: Evaluate, develop and implement POC Reason for Consult: Decreased Mobility - Patient Status Disposition: Home, Self-Care Condition: Good Functional capacity at discharge: independent ambulation Overall status at discharge: patient is back to baseline - Discharge Instructions Follow Up With: [facility],PCP [Primary Care Provider] - 07/26/17 12:30 pm () Additional Instructions: We will hold Lasix tomorrow. Resume Lasix. Her previous home dose 40 mg daily on 07/20/2017. Follow-up with the [facility] physician within one week of discharge. Start taking DuoNeb 4 times daily for the next 3 days then as needed for shortness of breath or wheezing. Start taking inhaled albuterol and as needed for wheezing or shortness of breath. You can increase your Lantus to 20 units daily while taking the prednisone only if blood glucose is greater than 200 in the morning. Following a strict diabetic low sodium diet, fluid intake in moderation. - Diet and Activity Diet: diabetic diet, low fat, low cholesterol, low salt diet Hospital course: Mr. Bragg is a 87 year old male with multiple medical comorbidities including hypertension diabetes, chronic kidney disease and COPD who was transferred from outside hospital where he presented with shortness of breath. He was diagnosed with pneumonia, COPD exacerbation, and respiratory failure. He was treated with IV antibiotics, IV Lasix and IV steroids. He made a good clinical improvement. He supplemental oxygen has been titrated down and his oxygen saturation is 93 on room air. He has been able to tolerate a diet. His steroids have been titrated down. His Lasix has also been decreased once he had a good negative fluid balance. Today his BUN and creatinine bumped slightly and Lasix has been stopped. He was instructed to hold his Lasix at home for 1 day and then resume per his home dose. He completed antibiotic course. He will be prescribed a prednisone taper and inhaled bronchodilators and will be discharged home. Blood cultures have remained negative during this admission. He did not meet sepsis criteria and therefore severe sepsis has been ruled out. - Time Spent with Patient Total time spent providing and/or coordinating discharge services: Greater than 30 minutes (I have spent 40 minutes coordinating this discharge.) - Constitutional Vitals: Temp Pulse Resp BP Pulse Ox 97.8 F 78 20 164/78 93 07/18/17 15:00 07/18/17 15:00 07/18/17 15:00 07/18/17 15:00 07/18/17 15:00 General appearance: Present: A&O X 3, pleasant, no acute distress, answers questions appropriately - Respiratory Respiratory exam: Present: CTAB. Absent: accessory muscle use, rales, rhonchi, wheezes - Cardiovascular Cardiovascular exam: Present: RRR, +S1, +S2. Absent: diastolic murmur, gallop, rubs, systolic murmur - GI/Abdominal GI/Abdominal exam: Present: normal bowel sounds, soft, no peritoneal signs. Absent: distended, tenderness - VTE Documentation of Mechanical Device: Graduated compression elastic hosiery
== END 2017-07-18 17:05 | disposition home or self-care (01) | DRG 177 ==
LOC: 2NNU 17:36 → SUATTDRO 17:36
PROVIDERS: ADMIT Internal Medicine; ATTEND Internal Medicine